=== PATIENT | male | born 1985 | race Caucasian/White ===

== ENCOUNTER 2020-08-27 16:49 | Observation (INO) | payer BC, OTHER, SELFPAY ==
[2020-08-27 16:55] VITALS: BP 139/81; PULSE 83; RESP 17; TEMP 36.5; O2SAT 99; BMI 27.2
--- NOTE | 2020-08-27 17:46 | CTR_ITS ---
PROCEDURE INFORMATION: Exam: CT Abdomen And Pelvis With Contrast Exam date and time: 08/27/2020 5:59 PM Age: 35 years old Clinical indication: Abdominal pain; Localized; Right upper quadrant (ruq); Additional info: Abd pain TECHNIQUE: Imaging protocol: Computed tomography of the abdomen and pelvis with intravenous contrast. Radiation optimization: All CT scans at this facility use at least one of these dose optimization techniques: automated exposure control; mA and/or kV adjustment per patient size (includes targeted exams where dose is matched to clinical indication); or iterative reconstruction. Contrast material: OMNI 300; Contrast volume: 95 ml; Contrast route: INTRAVENOUS (IV); COMPARISON: CT abdomen pelvis w con* [id number] 09/07/2015 11:36 AM RADIATION DOSE METRICS: Total DLP (mGy-cm): 887.29 FINDINGS: Liver: There is a 4 mm hypodensity in the left lobe of the liver image 17 that is too small to characterize but unchanged. There is a 1 cm peripherally enhancing abnormality in the right lobe of the liver image 16 that previously measured 6 mm. This is a probable hemangioma that is just beginning to opacify. Gallbladder and bile ducts: The gallbladder is collapsed. There is no evidence of cholelithiasis. There is no wall thickening or pericholecystic fluid to suggest cholecystitis. There is no common bile duct dilation. Pancreas: Normal. No ductal dilation. Spleen: Normal. No splenomegaly. Adrenal glands: Normal. No mass. Kidneys and ureters: There is no evidence of hydronephrosis. There is no evidence of renal calcifications. Stomach and bowel: The wall of the distal colon is thickened but collapsed. This appearance may reflect lack of distention however mild colitis cannot be excluded. There is no evidence of intestinal perforation or obstruction. Appendix: A normal appendix is identified. Intraperitoneal space: Unremarkable. No free air. No significant fluid collection. Vasculature: Unremarkable.No abdominal aortic aneurysm. Lymph nodes: Subcentimeter lymph nodes are noted in the adia hepatis and along the gastrohepatic ligament. There is no pathologic adenopathy. Urinary bladder: There is nonspecific bladder wall thickening. This may be related to incomplete distention. Reproductive: Unremarkable as visualized. Bones/joints: Unremarkable. No acute fracture. Soft tissues: Unremarkable. CT/CT abdomen pelvis w con* [id number] IMPRESSION: 1. The wall of the distal colon is thickened but collapsed. This appearance may reflect lack of distention however mild colitis cannot be excluded. The remaining loops of bowel have an appropriate appearance. 2. No hydronephrosis. No findings of cholecystitis. 3. Probable liver hemangiomas are noted. Radiation Dose CTDIVOL = (mGy): DLP = 887.29 (mGy-cm)
--- NOTE | 2020-08-27 17:59 | W.ED.ABDPA2 ---
Documented by User: Fermin Little DO 08/28/20 06:47 HPI - Abdominal Pain General: Chief Complaint: Abdominal Pain Stated Complaint: abd pain Time Seen by Provider: 08/27/20 17:33 History of Present Illness: HPI narrative: 35-year-old male presents emergency room complaining of 3 days of abdominal pain epigastric radiating to the right and left upper quadrants. Worse with p.o. intake he is tried several [id number] medications with no relief he denies any hematemesis or coffee-ground emesis. He does not drink heavily just not drink significant amount of coffee or alcohol. Denies fever sweats or chills or shortness of breath. MD elicited complaint: abdominal pain Onset (ago): day(s) (3) Pain Consistency: constant Location: Epigastric Severity: moderate Quality: cramping Radiation: LUQ and RUQ Exacerbating factors: eating Relieving factors: nothing Associated Symptoms: Reports anorexia, bloating and GI cramping; Denies change in bowel habits, change in stool character, chills, coffee ground emesis, constipation, diarrhea, dyspepsia, dysuria, excessive flatus, fever(s), heartburn, hematochezia, hematuria, hematemesis, fecal incontinence, loose stools, melena, nausea, poor appetite, syncope and vomiting Review of Systems Const: Denies: fever(s) or chills ENMT: Denies: throat pain, ear or mastoid pain, nasal discharge or nasal congestion Card: Denies: syncope Resp: Denies: dyspnea, productive cough or non-productive cough GI: Reports: bloating and GI cramping; Denies: nausea, vomiting, hematemesis, coffee ground emesis, heartburn, diarrhea, constipation, excessive flatus, fecal incontinence, change in bowel habits, change in stool character, hematochezia or melena : Denies: hematuria Skin/Breast: Denies: rash or pruritus PFSH ED PFSH: Social History Smoking and tobacco status: current every day smoker Alcohol intake: current Physical Exam Const: COMMON NORMALS: no acute distress GENERAL APPEARANCE: cooperative and comfortable ORIENTATION/CONSCIOUSNESS: Yes awake, Yes oriented to person, Yes oriented to place and Yes oriented to time HENMT: COMMON NORMALS: normocephalic, atraumatic and hearing grossly normal bilaterally HEAD & SCALP: normocephalic and atraumatic Neck/C-Spine: COMMON NORMALS: no JVD Resp: COMMON NORMALS: normal respiratory effort, No retractions, No use of accessory muscles and clear to auscultation bilaterally AUSCULTATION: clear to auscultation bilaterally Cardio: COMMON NORMALS: no JVD, regular rate, regular rhythm and No murmurs present (Cardio) RATE: regular rate RHYTHM: regular rhythm GI: COMMON NORMALS: Soft to palpation and No hepatosplenomegaly present AUSCULTATION: Yes normoactive bowel sounds PALPATION: Yes Soft to palpation, Yes Tenderness to palpation present (GI) (Diffuse epigastric), No Guarding due to palpation present (GI) and Yes No hepatosplenomegaly present Extremity: COMMON NORMALS: normal to inspection, capillary refill normal, no clubbing, cyanosis or edema, no calf tenderness and no pedal edema Neuro: SENSORIUM/ORIENTATION: Yes oriented to person, Yes oriented to place and Yes oriented to time Skin: COMMON NORMALS: no rashes or lesions noted GENERAL SKIN EXAM: no rashes or lesions noted Course Vital Signs: Vital signs: Vital Signs Temperature 97.8 F 08/28/20 04:00 Pulse Rate 67 08/28/20 04:00 Respiratory Rate 18 08/28/20 04:00 Blood Pressure 100/64 08/28/20 04:00 Pulse Oximetry 100 08/28/20 04:00 MDM - Abdominal Pain MDM Narrative: Medical decision making narrative: Care turned over to Dr. Rose at change of shift. See his notes for final diagnosis and disposition. Lab Data: Labs: Lab Results 08/27/20 08/27/20 08/27/20 Range/Units 17:51 17:51 17:51 WBC 7.2 (4.0-10.0) 10^3/ uL RBC 5.34 H (4.1-5.3) 10^6/u L Hgb 16.5 (11.7-16.6) g/dL Hct 49.5 (42.0-52.0) % MCV 92.7 (80-94) fL MCH 30.9 (28.0-34.0) pg MCHC 33.3 (30.0-36.0) g/dL RDW 11.4 L (12.1-15.1) % Plt Count 295 (130-400) 10^3/c mm MPV 9.4 (7.4-10.4) fL Neut % (Auto) 46.1 % Lymph % (Auto) 38.9 % Lawrence % (Auto) 7.3 % Eos % (Auto) 6.7 % Baso % (Auto) 0.7 % Neut # (Auto) 3.31 (1.8-7.7) 10^3/u L Lymph # (Auto) 2.8 (0.8-4.8) 10^3/u L Lawrence # (Auto) 0.5 (0.2-0.9) 10^3/u L Eos # (Auto) 0.5 (0.0-0.8) 10^3/u L Baso # (Auto) 0.1 (0.0-0.1) 10^3/u L Nucleated RBC % (a uto) 0 % Nucleated RBCs # 0.0 /100WBC Sodium 139 (136-145) mmol/L Potassium 4.1 (3.5-5.1) mmol/L Chloride 103 (98-107) mmol/L Carbon Dioxide 28 (22-29) mmol/L Anion Gap 12.1 (5-19) BUN 11 (6-20) mg/dL Creatinine 0.8 (0.7-1.2) mg/dL GFR Calculation 109.4 (90-130) mL/min Glucose 100 (65-115) mg/dL Calculated Osmolal ity 287 (285-295) mOsm/k g Calcium 9.4 (8.5-10.5) mg/dL Total Bilirubin 0.8 (0.15-1.2) mg/dL AST 26 (0-40) U/L ALT 50 H (0-41) U/L Alkaline Phosphata se 88 (40-130) IU/L Total Protein 6.9 (6.6-8.7) g/dL Albumin 4.5 (3.5-5.2) g/dL Globulin 2.4 (1.3-4.6) g/dL Lipase 39 (13-60) U/L Urine Color Yellow (Yellow) Urine Appearance Clear (CLEAR) Urine pH 6.5 (5-7) Ur Specific Gravit y 1.015 (1.005-1.030) Urine Protein Neg (Negative) Urine Glucose (UA) Norm (Normal) Urine Ketones Negative (Negative) Urine Blood Neg (Negative) Urine Nitrate Negative (Negative) Urine Bilirubin Neg (Negative) Urine Urobilinogen 1 H (Negative) mg/dL Ur Leukocyte Lydia ase Negative (Negative) H. pylori IgG Anti body (Negative) 08/27/20 Range/Units 17:51 WBC (4.0-10.0) 10^3/ uL RBC (4.1-5.3) 10^6/u L Hgb (11.7-16.6) g/dL Hct (42.0-52.0) % MCV (80-94) fL MCH (28.0-34.0) pg MCHC (30.0-36.0) g/dL RDW (12.1-15.1) % Plt Count (130-400) 10^3/c mm MPV (7.4-10.4) fL Neut % (Auto) % Lymph % (Auto) % Lawrence % (Auto) % Eos % (Auto) % Baso % (Auto) % Neut # (Auto) (1.8-7.7) 10^3/u L Lymph # (Auto) (0.8-4.8) 10^3/u L Lawrence # (Auto) (0.2-0.9) 10^3/u L Eos # (Auto) (0.0-0.8) 10^3/u L Baso # (Auto) (0.0-0.1) 10^3/u L Nucleated RBC % (a uto) % Nucleated RBCs # /100WBC Sodium (136-145) mmol/L Potassium (3.5-5.1) mmol/L Chloride (98-107) mmol/L Carbon Dioxide (22-29) mmol/L Anion Gap (5-19) BUN (6-20) mg/dL Creatinine (0.7-1.2) mg/dL GFR Calculation (90-130) mL/min Glucose (65-115) mg/dL Calculated Osmolal ity (285-295) mOsm/k g Calcium (8.5-10.5) mg/dL Total Bilirubin (0.15-1.2) mg/dL AST (0-40) U/L ALT (0-41) U/L Alkaline Phosphata se (40-130) IU/L Total Protein (6.6-8.7) g/dL Albumin (3.5-5.2) g/dL Globulin (1.3-4.6) g/dL Lipase (13-60) U/L Urine Color (Yellow) Urine Appearance (CLEAR) Urine pH (5-7) Ur Specific Gravit y (1.005-1.030) Urine Protein (Negative) Urine Glucose (UA) (Normal) Urine Ketones (Negative) Urine Blood (Negative) Urine Nitrate (Negative) Urine Bilirubin (Negative) Urine Urobilinogen (Negative) mg/dL Ur Leukocyte Lydia ase (Negative) H. pylori IgG Anti body Negative (Negative) Discharge Plan Discharge Admit Provider: Gorge Sandhu Sign Out Sign Out Data: Patient Sign Out occurred on 08/27/20 at 18:13. Patient's care was discussed, and care was transferred from to Kajal Delong. Coding Level of Care Code ED Front Desk Administrator for Chg Fwd Exam Comprehensive Documented by User: Kajal Delong 08/28/20 02:12 HPI - Abdominal Pain General: Chief Complaint: Abdominal Pain Stated Complaint: abd pain Time Seen by Provider: 08/27/20 17:33 [facility] ED PFSH: Social History Smoking and tobacco status: current every day smoker Alcohol intake: current Course Vital Signs: Vital signs: Vital Signs Temperature 97.8 F 08/28/20 04:00 Pulse Rate 67 08/28/20 04:00 Respiratory Rate 18 08/28/20 04:00 Blood Pressure 100/64 08/28/20 04:00 Pulse Oximetry 100 08/28/20 04:00 MDM - Abdominal Pain MDM Narrative: Medical decision making narrative: 1853 -Case inherited by me at change of shift from Dr. Little. Please see his note for his history, physical exam and medical decision-making notes. Patient explains to me has had abdominal pain primarily in the left upper quadrant but now some in the right upper quadrant as well for the past 3 days. He describes the pain as a dull ache with occasional sharp pains. He has no radiation of the pain. He has no associated vomiting, no diarrhea or constipation, no testicular pain or urinary symptoms such as dysuria, urgency or frequency. Patient has any fevers or chills. Patient currently states his pain is mild to moderate. On exam he has tenderness in both the right upper quadrant and left upper quadrant that is mild. There is no rebound or guarding. CT scan has been performed but has not been interpreted and his CBC to this point is normal. I will reevaluate after the patient's CT scan and labs have returned. 1804 -patient is nauseated and still has pain. CT scan was unremarkable but his ultrasound shows a thickened gallbladder wall at 0.81 cm. I reviewed all this with Dr. Desai he agrees to meet the patient on IV antibiotics and will perform a cholecystectomy tomorrow. Patient is in agreement with this plan. Differential Diagnosis: Differential diagnosis abdominal pain: Likely abdominal pain, acute appendicitis, calculus of kidney, constipation, diverticulitis, gastroenteritis, pancreatitis and small bowel obstruction Lab Data: Attestation: I reviewed the patient's lab results. Labs: Lab Results 08/27/20 08/27/20 08/27/20 Range/Units 17:51 17:51 17:51 WBC 7.2 (4.0-10.0) 10^3/ uL RBC 5.34 H (4.1-5.3) 10^6/u L Hgb 16.5 (11.7-16.6) g/dL Hct 49.5 (42.0-52.0) % MCV 92.7 (80-94) fL MCH 30.9 (28.0-34.0) pg MCHC 33.3 (30.0-36.0) g/dL RDW 11.4 L (12.1-15.1) % Plt Count 295 (130-400) 10^3/c mm MPV 9.4 (7.4-10.4) fL Neut % (Auto) 46.1 % Lymph % (Auto) 38.9 % Lawrence % (Auto) 7.3 % Eos % (Auto) 6.7 % Baso % (Auto) 0.7 % Neut # (Auto) 3.31 (1.8-7.7) 10^3/u L Lymph # (Auto) 2.8 (0.8-4.8) 10^3/u L Lawrence # (Auto) 0.5 (0.2-0.9) 10^3/u L Eos # (Auto) 0.5 (0.0-0.8) 10^3/u L Baso # (Auto) 0.1 (0.0-0.1) 10^3/u L Nucleated RBC % (a uto) 0 % Nucleated RBCs # 0.0 /100WBC Sodium 139 (136-145) mmol/L Potassium 4.1 (3.5-5.1) mmol/L Chloride 103 (98-107) mmol/L Carbon Dioxide 28 (22-29) mmol/L Anion Gap 12.1 (5-19) BUN 11 (6-20) mg/dL Creatinine 0.8 (0.7-1.2) mg/dL GFR Calculation 109.4 (90-130) mL/min Glucose 100 (65-115) mg/dL Calculated Osmolal ity 287 (285-295) mOsm/k g Calcium 9.4 (8.5-10.5) mg/dL Total Bilirubin 0.8 (0.15-1.2) mg/dL AST 26 (0-40) U/L ALT 50 H (0-41) U/L Alkaline Phosphata se 88 (40-130) IU/L Total Protein 6.9 (6.6-8.7) g/dL Albumin 4.5 (3.5-5.2) g/dL Globulin 2.4 (1.3-4.6) g/dL Lipase 39 (13-60) U/L Urine Color Yellow (Yellow) Urine Appearance Clear (CLEAR) Urine pH 6.5 (5-7) Ur Specific Gravit y 1.015 (1.005-1.030) Urine Protein Neg (Negative) Urine Glucose (UA) Norm (Normal) Urine Ketones Negative (Negative) Urine Blood Neg (Negative) Urine Nitrate Negative (Negative) Urine Bilirubin Neg (Negative) Urine Urobilinogen 1 H (Negative) mg/dL Ur Leukocyte Lydia ase Negative (Negative) H. pylori IgG Anti body (Negative) 08/27/20 Range/Units 17:51 WBC (4.0-10.0) 10^3/ uL RBC (4.1-5.3) 10^6/u L Hgb (11.7-16.6) g/dL Hct (42.0-52.0) % MCV (80-94) fL MCH (28.0-34.0) pg MCHC (30.0-36.0) g/dL RDW (12.1-15.1) % Plt Count (130-400) 10^3/c mm MPV (7.4-10.4) fL Neut % (Auto) % Lymph % (Auto) % Lawrence % (Auto) % Eos % (Auto) % Baso % (Auto) % Neut # (Auto) (1.8-7.7) 10^3/u L Lymph # (Auto) (0.8-4.8) 10^3/u L Lawrence # (Auto) (0.2-0.9) 10^3/u L Eos # (Auto) (0.0-0.8) 10^3/u L Baso # (Auto) (0.0-0.1) 10^3/u L Nucleated RBC % (a uto) % Nucleated RBCs # /100WBC Sodium (136-145) mmol/L Potassium (3.5-5.1) mmol/L Chloride (98-107) mmol/L Carbon Dioxide (22-29) mmol/L Anion Gap (5-19) BUN (6-20) mg/dL Creatinine (0.7-1.2) mg/dL GFR Calculation (90-130) mL/min Glucose (65-115) mg/dL Calculated Osmolal ity (285-295) mOsm/k g Calcium (8.5-10.5) mg/dL Total Bilirubin (0.15-1.2) mg/dL AST (0-40) U/L ALT (0-41) U/L Alkaline Phosphata se (40-130) IU/L Total Protein (6.6-8.7) g/dL Albumin (3.5-5.2) g/dL Globulin (1.3-4.6) g/dL Lipase (13-60) U/L Urine Color (Yellow) Urine Appearance (CLEAR) Urine pH (5-7) Ur Specific Gravit y (1.005-1.030) Urine Protein (Negative) Urine Glucose (UA) (Normal) Urine Ketones (Negative) Urine Blood (Negative) Urine Nitrate (Negative) Urine Bilirubin (Negative) Urine Urobilinogen (Negative) mg/dL Ur Leukocyte Lydia ase (Negative) H. pylori IgG Anti body Negative (Negative) Imaging Data ^: CT Abd/Pel: Radiologist's impression: [employer] [address] [address] [address] Scan Report Signed Patient: Mega Gonzales Unit #: [id number] : 1985 Age/Sex: 35 / M ADM Date: 08/27/20 Loc: ER Room/Bed: Attending Dr: Ordering Provider/Ordering MD: Fermin Little DO Date of Service: 08/27/20 Procedure(s): CT abdomen pelvis w con* [id number] Accession Number(s): [id number] Report Number: [id number] PROCEDURE INFORMATION: Exam: CT Abdomen And Pelvis With Contrast Exam date and time: 08/27/2020 5:59 PM Age: 35 years old Clinical indication: Abdominal pain; Localized; Right upper quadrant (ruq); Additional info: Abd pain TECHNIQUE: Imaging protocol: Computed tomography of the abdomen and pelvis with intravenous contrast. Radiation optimization: All CT scans at this facility use at least one of these dose optimization techniques: automated exposure control; mA and/or kV adjustment per patient size (includes targeted exams where dose is matched to clinical indication); or iterative reconstruction. Contrast material: OMNI 300; Contrast volume: 95 ml; Contrast route: INTRAVENOUS (IV); COMPARISON: CT abdomen pelvis w con* [id number] 09/07/2015 11:36 AM RADIATION DOSE METRICS: Total DLP (mGy-cm): 887.29 FINDINGS: Liver: There is a 4 mm hypodensity in the left lobe of the liver image 17 that is too small to characterize but unchanged. There is a 1 cm peripherally enhancing abnormality in the right lobe of the liver image 16 that previously measured 6 mm. This is a probable hemangioma that is just beginning to opacify. Gallbladder and bile ducts: The gallbladder is collapsed. There is no evidence of cholelithiasis. There is no wall thickening or pericholecystic fluid to suggest cholecystitis. There is no common bile duct dilation. Pancreas: Normal. No ductal dilation. Spleen: Normal. No splenomegaly. Adrenal glands: Normal. No mass. Kidneys and ureters: There is no evidence of hydronephrosis. There is no evidence of renal calcifications. Stomach and bowel: The wall of the distal colon is thickened but collapsed. This appearance may reflect lack of distention however mild colitis cannot be excluded. There is no evidence of intestinal perforation or obstruction. Appendix: A normal appendix is identified. Intraperitoneal space: Unremarkable. No free air. No significant fluid collection. Vasculature: Unremarkable.No abdominal aortic aneurysm. Lymph nodes: Subcentimeter lymph nodes are noted in the adia hepatis and along the gastrohepatic ligament. There is no pathologic adenopathy. Urinary bladder: There is nonspecific bladder wall thickening. This may be related to incomplete distention. Reproductive: Unremarkable as visualized. Bones/joints: Unremarkable. No acute fracture. Soft tissues: Unremarkable. CT/CT abdomen pelvis w con* [id number] IMPRESSION: 1. The wall of the distal colon is thickened but collapsed. This appearance may reflect lack of distention however mild colitis cannot be excluded. The remaining loops of bowel have an appropriate appearance. 2. No hydronephrosis. No findings of cholecystitis. 3. Probable liver hemangiomas are noted. Radiation Dose CTDIVOL = (mGy): DLP = 887.29 (mGy-cm) Dictated By: Marija Lacy Signed By: Marija Lacy Signed Date/Time: 08/27/201855 DD/ 54 Discharge Plan Discharge Admit Provider: Gorge Sandhu Sign Out Sign Out Data: Patient Sign Out occurred on 08/27/20 at 18:13. Patient's care was discussed, and care was transferred from to [facility]. Coding Level of Care Code ED Front Desk Administrator for Chg Fwd Exam Comprehensive
[2020-08-27 18:03] LABS: Add Urine Microscopic? NO
[2020-08-27 18:04] LABS: Basophils # 0.1 10^3/uL (0.0-0.1); Basophils % 0.7 %; Eosinophils # 0.5 10^3/uL (0.0-0.8); Eosinophils % 6.7 %; Hematocrit 49.5 % (42.0-52.0); Hemoglobin 16.5 g/dL (11.7-16.6); Lymphocytes # 2.8 10^3/uL (0.8-4.8); Lymphocytes % 38.9 %; Mean Corpuscular HGB Conc 33.3 g/dL (30.0-36.0); Mean Corpuscular Hemoglobin 30.9 pg (28.0-34.0); Mean Corpuscular Volume 92.7 fL (80-94); Mean Platelet Volume 9.4 fL (7.4-10.4); Monocytes # 0.5 10^3/uL (0.2-0.9); Monocytes % 7.3 %; Neutrophils # 3.31 10^3/uL (1.8-7.7); Neutrophils % 46.1 %; Nucleated Red Blood Cells % 0 %; Platelet Count 295 10^3/cmm (130-400); Red Blood Count 5.34 10^6/uL (4.1-5.3); Red Cell Distribution Width 11.4 % (12.1-15.1); White Blood Count 7.2 10^3/uL (4.0-10.0)
[2020-08-27] MEDS: ondansetron 2 mg/ML SDV 2 mL 4 MG IVP ×2 (18:12→19:24)
[2020-08-27] MEDS: lidocaine 2% viscous 15 ML, aluminum-mag hydrox-simethicon 30 ML, sucralfate oral liq 1 GM PO (18:12)
[2020-08-27] MEDS: sodium chloride 0.9% 1,000 ML 999 ML IV (18:12)
[2020-08-27 18:24] LABS: Bilirubin Urine Neg (Negative); Blood Urine Neg (Negative); Glucose Urine UA Norm (Normal); Ketones Urine Negative (Negative); Nitrate Urine Negative (Negative); Protein Urine Neg (Negative); Specific Gravity, Urine 1.015 (1.005-1.030); Urine Appearance Clear (CLEAR); Urine Color Yellow (Yellow); pH Urine 6.5 (5-7)
[2020-08-27 18:25] LABS: Leukocyte Esterase Urine Negative (Negative); Urobilinogen Urine 1 mg/dL (Negative)
[2020-08-27] MEDS: iohexol 300 mg/mL 100 mL Btl IV (18:36)
[2020-08-27 18:57] LABS: Alanine Aminotransferase 50 U/L (0-41); Albumin Level 4.5 g/dL (3.5-5.2); Alkaline Phosphatase 88 IU/L (40-130); Anion Gap 12.1 (5-19); Aspartate Amino Transferase 26 U/L (0-40); Blood Urea Nitrogen 11 mg/dL (6-20); Calcium 9.4 mg/dL (8.5-10.5); Carbon Dioxide 28 mmol/L (22-29); Chloride 103 mmol/L (98-107); Globulin 2.4 g/dL (1.3-4.6); Glomerular Filtration Rate 109.4 mL/min (90-130); Glucose 100 mg/dL (65-115); Lipase 39 U/L (13-60); Osmolality Calculated 287 mOsm/kg (285-295); Potassium 4.1 mmol/L (3.5-5.1); Sodium 139 mmol/L (136-145); Total Bilirubin 0.8 mg/dL (0.15-1.2); Total Protein 6.9 g/dL (6.6-8.7)
--- NOTE | 2020-08-27 19:06 | US_ITS ---
WS: [id number] ULTRASOUND ABDOMEN LIMITED CLINICAL INFORMATION: Pain COMPARISON: None. FINDINGS: Liver Size: Normal. Craniocaudal length: 16.0 cm. Echogenicity: Diffuse fatty infiltration. Surface nodularity: None. Mass (size and location): None. Bile ducts Intrahepatic ducts: Normal. Common bile duct diameter: 4.7mm Gallbladder Contracted Gallstones: None. Gallbladder sludge: None. Gallbladder wall thickenin.2 mm Pericholecystic fluid: None. Sonographic Hinojosa sign: Absent. Pancreas Normal as visualized. Right kidney: Normal. Hydronephrosis: None. Size: 10.6 cm x 4.9 cm x 3.9 cm. Abdominal aorta and IVC Visualized portions are normal. Ascites: None. US/US gall bladder [id number] IMPRESSION: 1. Liver size is upper limits of normal with mild diffuse fatty infiltration. No intrahepatic biliary ductal dilatation. 2. Gallbladder is contracted. Gallbladder is otherwise normal in appearance. N ormal common bile duct. 3. No hydronephrosis in the right kidney.
[2020-08-27] MEDS: morphine 4 mg/mL SDV 1 mL IVP (19:24)
[2020-08-27 19:27] VITALS: PULSE 74; RESP 16; O2SAT 99
[2020-08-27 19:40] LABS: H. Pylori IgG Antibody Negative (Negative)
[2020-08-27] MEDS: metroNIDAZOLE IV 500 MG/100 ML PREMIX 100 MG IV (19:53)
[2020-08-27] MEDS: nicotine 21 mg Patch 1 PATCH TRANSDERMA (20:37)
[2020-08-27] MEDS: LORazepam 1 mg Tablet PO (20:37)
[2020-08-27 20:51] VITALS: BP 134/78; PULSE 83; RESP 18; O2SAT 97
[2020-08-27 20:52] VITALS: BP 132/78; PULSE 78; RESP 16; O2SAT 98
[2020-08-27] MEDS: ciprofloxacin 400 MG/200 ML PREMIX 200 MG IV (21:01)
[2020-08-27 21:09] VITALS: BP 125/80; PULSE 65; RESP 18; TEMP 36.6; O2SAT 97
--- NOTE | 2020-08-27 21:13 | PC.NURSE ---
Pt arrived to floor and ambulated from gurney in the hcu to bed. Pt is A&O. Breathing is even and unlabored.
[2020-08-27] MEDS: dextrose 5%-sod chloride 0.45% 1,000 ML 100 ML IV (22:12)
[2020-08-27 23:48] VITALS: BP 119/60; PULSE 62; RESP 18; TEMP 36.8; O2SAT 96
[2020-08-28] VITALS (9 sets, daily range): BP systolic 100–122; BP diastolic 64–78; PULSE 64–79; RESP 14–20; TEMP 36.4–36.7; O2SAT 95–100
[2020-08-28] MEDS: morphine 4 mg/mL SDV 1 mL IVP ×4 (01:10→22:53)
[2020-08-28] MEDS: ondansetron 2 mg/ML SDV 2 mL 4 MG IVP ×3 (01:10→22:53)
[2020-08-28] MEDS: metroNIDAZOLE IV 500 MG/100 ML PREMIX 100 MG IV ×3 (03:44→21:01)
[2020-08-28 05:33] LABS: Basophils # 0.1 10^3/uL (0.0-0.1); Basophils % 0.7 %; Eosinophils # 0.6 10^3/uL (0.0-0.8); Eosinophils % 9.1 %; Hematocrit 47.8 % (42.0-52.0); Hemoglobin 15.5 g/dL (11.7-16.6); Lymphocytes # 3.4 10^3/uL (0.8-4.8); Lymphocytes % 50.1 %; Mean Corpuscular HGB Conc 32.4 g/dL (30.0-36.0); Mean Corpuscular Hemoglobin 31.2 pg (28.0-34.0); Mean Corpuscular Volume 96.2 fL (80-94); Mean Platelet Volume 9.8 fL (7.4-10.4); Monocytes # 0.5 10^3/uL (0.2-0.9); Monocytes % 7.9 %; Neutrophils # 2.15 10^3/uL (1.8-7.7); Neutrophils % 32.1 %; Nucleated Red Blood Cells % 0 %; Platelet Count 245 10^3/cmm (130-400); Red Blood Count 4.97 10^6/uL (4.1-5.3); Red Cell Distribution Width 11.6 % (12.1-15.1); White Blood Count 6.7 10^3/uL (4.0-10.0)
[2020-08-28 06:04] LABS: Alanine Aminotransferase 39 U/L (0-41); Albumin Level 3.7 g/dL (3.5-5.2); Alkaline Phosphatase 70 IU/L (40-130); Anion Gap 12.2 (5-19); Aspartate Amino Transferase 19 U/L (0-40); Blood Urea Nitrogen 9 mg/dL (6-20); Calcium 8.7 mg/dL (8.5-10.5); Carbon Dioxide 31 mmol/L (22-29); Chloride 104 mmol/L (98-107); Globulin 2.4 g/dL (1.3-4.6); Glomerular Filtration Rate 95.5 mL/min (90-130); Glucose 80 mg/dL (65-115); Osmolality Calculated 294 mOsm/kg (285-295); Potassium 4.2 mmol/L (3.5-5.1); Sodium 143 mmol/L (136-145); Total Bilirubin 0.9 mg/dL (0.15-1.2); Total Protein 6.1 g/dL (6.6-8.7)
--- NOTE | 2020-08-28 08:07 | PM.HP ---
Providers/Chief Complaint Admitting Physician: General Surgery Dutch Desai MD Primary Care Provider: Paresh Quiles DO Chief Complaint: abd pain History of Present Illness Mega Gonzales is a 35 year old male who says he developed some upper abdominal pain 3 to 4 days ago. He describes this as being on either side of the abdomen at the rib cage margins and it seems to radiate towards the epigastrium. He also has had sharp pains that would occur throughout the remainder of his abdomen. He denies any nausea or vomiting. He has not had any fevers. He denies any changes in bowel habits. He has noticed perhaps more discomfort in the right upper quadrant as opposed to the left as the pain continued. He says the pain got bad enough that he came to the emergency room yesterday and an ultrasound revealed a gallbladder with a thickened gallbladder wall. A CAT scan did not reveal any obvious acute findings. All of his liver function studies were within normal limits, as was his white blood cell count. The patient was brought in under observation for presumed acute cholecystitis. He says he feels somewhat better this morning but has been getting some pain medication. The patient denies any history of food intolerances prior to this past week with the exception of dairy products which have always made him gassy. In short, he does not appear to have an ongoing history of biliary colic. 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 By the time he got to [facility] for further evaluation he was feeling better and his spleen was starting to improve. Nothing specific was done at that time and he has not had any similar problems since until now. Review of Systems General: Reports: 10 or more systems reviewed and unremarkable except in HPI and below Const: Denies: fever(s) Resp: Denies: dyspnea GI: Reports: abdominal pain, bloating and belching; Denies: vomiting Psych: Reports: anxiety and depression Medications/Allergies Home Medications Medication Instructions Recorded Confirmed Last Taken Type venlafaxine 150 mg PO DAILY 08/27/20 08/27/20 Unknown History Allergies Allergy/AdvReac Type Severity Reaction Status Date / Time Penicillins Allergy rash Verified 08/28/20 08:14 PFSH Acute PFSH: Medical History (Updated 08/28/20 @ 09:03 by Dutch Desai MD) Anxiety Depression Gilbert's disease IBS (irritable bowel syndrome) PTSD (post-traumatic stress disorder) Von Willebrand disease Surgical History (Updated 08/28/20 @ 08:06 by Dutch Desai MD) H/O vasectomy Social History (Updated 08/28/20 @ 08:07 by Dutch Desai MD) Smoking and tobacco status: current every day smoker cigarettes Packs smoked per day: 0.75 Years cigarettes smoked: 20 Alcohol intake: current Alcohol intake frequency: 3 or more drinks per day Alcohol type: beer Alcohol use comment: Averages 6 beers a day Vitals/I&O/Wt Last Vital Signs Temp 97.5 F L 08/28/20 07:56 Pulse 72 08/28/20 07:56 Resp 20 H 08/28/20 07:56 BP 112/74 08/28/20 07:56 Pulse Ox 98 08/28/20 07:56 08/27/20 08/28/20 08/28/20 22:59 06:59 14:59 Intake Total 200 / 200 1300 / 1300 Balance 200 / 200 1300 / 1300 Weight last 48 hrs Weight 212 lb Physical Exam Narrative: EXAM NARRATIVE: The patient was encountered in his hospital room. He does not appear to be in any distress. The pupils are equal. No carotid bruits are heard. The lungs are clear anteriorly. The heart is regular. The abdomen is mildly obese but is soft and has good bowel sounds. He does have some mild tenderness the upper abdomen with perhaps more consistent tenderness being present in the right upper quadrant. Hinojosa's sign is negative. No obvious masses are palpated. The extremities reveal no edema. Neurologically the patient is grossly intact. Data : 08/28/20 04:31 08/28/20 04:31 Other Labs: Laboratory Tests 08/27/20 08/28/20 17:51 04:31 Total Bilirubin 0.9 AST 19 ALT 39 Alkaline Phosphatase 70 Lipase 39 Laboratory Tests 08/27/20 17:51 H. pylori IgG Antibody Negative CT Abd/Pel: Radiologist's impression: CT abdomen/pelvis 08/27/2020 IMPRESSION: 1. The wall of the distal colon is thickened but collapsed. This appearance may reflect lack of distention however mild colitis cannot be excluded. The remaining loops of bowel have an appropriate appearance. 2. No hydronephrosis. No findings of cholecystitis. 3. Probable liver hemangiomas are noted. US: Radiologist's impression: Gallbladder ultrasound 08/27/2020 IMPRESSION: 1. Liver size is upper limits of normal with mild diffuse fatty infiltration. No intrahepatic biliary ductal dilatation. 2. Gallbladder is contracted. Gallbladder is otherwise normal in appearance. Normal common bile duct. 3. No hydronephrosis in the right kidney. A&P Assessment and plan (1) Upper abdominal pain: After the patient was brought into the hospital from the emergency room last night, I was prepared to tell him he had acute cholecystitis and that we needed to proceed with a cholecystectomy. His history is certainly not consistent with any ongoing biliary colic, but I figured he may have had a stone lodged in the neck of his gallbladder. His gallbladder is actually very contracted and without any evidence of cholelithiasis. The gallbladder wall contraction could certainly be a reason why his gallbladder wall appears thickened. While it is still possible he could have chronic cholecystitis, I am starting to think that he may not have acute cholecystitis and he may have some other source to his pain. We have discussed this issue in detail and I told him that I do think it would be dangerous to keep an eye on him for a while in an attempt to avoid surgery; I certainly do not want to take out a gallbladder that is not causing problems. He understands and is agreeable with that plan. Status: Acute (2) Von Willebrand disease: I have checked with the blood bank and we do have cryoprecipitate available if needed. I am going to plan to give the patient a dose of DDAVP 30 minutes prior to surgery if we end up going to the operating room at some point. Status: Acute Attestations Medical Necessity Statement*: Based on my medical assessment, presenting symptoms and consideration of the scope of surgical therapy, I expect this patient will require treatment in the hospital for a period of time spanning less than 2 midnights, and is therefore being placed in observation status. Coding Level of Care Code Acute Laboratory Helper for [facility] Fwd Diagnoses Upper abdominal pain R10.10 Von Willebrand disease D68.0
[2020-08-28] MEDS: dextrose 5%-sod chloride 0.45% 1,000 ML 100 ML IV ×2 (08:10→16:53)
[2020-08-28] MEDS: ciprofloxacin 400 MG/200 ML PREMIX 200 MG IV ×2 (08:10→21:02)
[2020-08-28] MEDS: lidocaine 2% viscous 15 ML, aluminum-mag hydrox-simethicon 30 ML, sucralfate oral liq 1 GM PO (10:18)
[2020-08-28] MEDS: pantoprazole 40 mg SDV IVP ×2 (10:19→20:52)
--- NOTE | 2020-08-28 11:33 | P.PN_ITS ---
Subjective Subjective: Interval history: After holding on surgery, I had the patient drink a GI cocktail just to see if would make any difference in how he was feeling. He says it really did not change much. He still has some discomfort but is reasonably comfortable. Vitals/I&O/Wt Last Vital Signs Temp 97.5 F L 08/28/20 11:10 Pulse 65 08/28/20 11:10 Resp 18 08/28/20 11:10 BP 114/74 08/28/20 11:10 Pulse Ox 97 08/28/20 11:10 08/27/20 08/28/20 08/28/20 22:59 06:59 14:59 Intake Total 200 / 200 2496.667 / 2496.667 Balance 200 / 200 2496.667 / 2496.667 Weight last 48 hrs Weight 212 lb Physical Exam Narrative: EXAM NARRATIVE: Exam remains about the same with some upper abdominal tenderness, seemingly most consistent in the right upper quadrant. Data : 08/28/20 04:31 08/28/20 04:31 A&P Assessment and plan (1) Upper abdominal pain: I discussed the situation with the patient. In reviewing his previous imaging, he had a contracted gallbladder on the CAT scan back in 2012. He had a relatively normal appearance to his gallbladder on CAT scans in 2011 and 2014. In short, I told him that with a 3-day history of pain and imaging and laboratory studies that do not point me in a particular direction, it is difficult for me to recommend he have a cholecystectomy at this time. I suggested that we could keep an eye on him overnight and reevaluate him in the morning with labs, exam, etc. He is in agreement with that plan. Status: Acute (2) Von Willebrand disease: I have checked with the blood bank and we do have cryoprecipitate available if needed. I am going to plan to give the patient a dose of DDAVP 30 minutes prior to surgery if we end up going to the operating room at some point. Status: Acute Attestations Medical Necessity Statement*: The patient will remain in observation status. There is a chance she may be discharged in the morning. If not, I will convert him to inpatient status. Coding Level of Care Code Acute Supervisor Spinning for [facility] Sal Diagnoses Upper abdominal pain R10.10 Von Willebrand disease D68.0
[2020-08-28] MEDS: nicotine 14 mg Patch 1 PATCH TRANSDERMA (17:39)
[2020-08-29] VITALS: BP 115/76; PULSE 69; RESP 18; TEMP 36.5; O2SAT 96
[2020-08-29 02:47] LABS: Basophils # 0.1 10^3/uL (0.0-0.1); Basophils % 1.1 %; Eosinophils # 0.7 10^3/uL (0.0-0.8); Eosinophils % 13.1 %; Hematocrit 45.1 % (42.0-52.0); Hemoglobin 15.2 g/dL (11.7-16.6); Lymphocytes # 2.6 10^3/uL (0.8-4.8); Lymphocytes % 45.2 %; Mean Corpuscular HGB Conc 33.7 g/dL (30.0-36.0); Mean Corpuscular Hemoglobin 31.1 pg (28.0-34.0); Mean Corpuscular Volume 92.4 fL (80-94); Mean Platelet Volume 9.7 fL (7.4-10.4); Monocytes # 0.4 10^3/uL (0.2-0.9); Monocytes % 7.1 %; Neutrophils % 33.5 %; Nucleated Red Blood Cells % 0 %; Platelet Count 243 10^3/cmm (130-400); Red Blood Count 4.88 10^6/uL (4.1-5.3); Red Cell Distribution Width 11.3 % (12.1-15.1); White Blood Count 5.7 10^3/uL (4.0-10.0)
[2020-08-29 03:13] LABS: Alanine Aminotransferase 36 U/L (0-41); Albumin Level 3.7 g/dL (3.5-5.2); Alkaline Phosphatase 76 IU/L (40-130); Aspartate Amino Transferase 18 U/L (0-40); Globulin 1.9 g/dL (1.3-4.6); Lipase 33 U/L (13-60); Total Bilirubin 0.5 mg/dL (0.15-1.2); Total Protein 5.6 g/dL (6.6-8.7)
[2020-08-29 03:14] LABS: Anion Gap 14.2 (5-19); Blood Urea Nitrogen 9 mg/dL (6-20); Carbon Dioxide 26 mmol/L (22-29); Chloride 103 mmol/L (98-107); Glomerular Filtration Rate 109.4 mL/min (90-130); Glucose 123 mg/dL (65-115); Osmolality Calculated 288 mOsm/kg (285-295); Potassium 4.2 mmol/L (3.5-5.1); Sodium 139 mmol/L (136-145)
[2020-08-29 04:00] VITALS: BP 122/67; PULSE 70; RESP 19; TEMP 36.8; O2SAT 95
[2020-08-29] MEDS: metroNIDAZOLE IV 500 MG/100 ML PREMIX 100 MG IV ×2 (05:32→12:01)
[2020-08-29] MEDS: dextrose 5%-sod chloride 0.45% 1,000 ML 100 ML IV (05:33)
[2020-08-29] MEDS: ondansetron 2 mg/ML SDV 2 mL 4 MG IVP (06:40)
[2020-08-29 06:41] VITALS: RESP 18
[2020-08-29] MEDS: morphine 4 mg/mL SDV 1 mL IVP (06:41)
[2020-08-29 07:27] VITALS: BP 110/73; PULSE 72; RESP 16; TEMP 36.7; O2SAT 95
[2020-08-29] MEDS: pantoprazole 40 mg SDV IVP (08:31)
[2020-08-29] MEDS: nicotine 14 mg Patch 1 PATCH TRANSDERMA (09:15)
[2020-08-29] MEDS: ciprofloxacin 400 MG/200 ML PREMIX 200 MG IV (09:16)
--- NOTE | 2020-08-29 09:56 | PC.RESP ---
SMOKING CESSATION INFORMATION SENT TO PATIENT.
[2020-08-29 11:26] VITALS: BP 104/75; PULSE 67; RESP 18; TEMP 36.6; O2SAT 67
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
[2020-08-29 15:18] VITALS: BP 104/75; PULSE 67; RESP 18; TEMP 36.6; O2SAT 67
--- NOTE | 2020-08-29 15:30 | PC.NURSE ---
DC instructions given to patient, voiced full understanding. IV DC'd cath intact bleeding controlled with 2x2 and coban. PT to main entrance via wheelchair to private vehicle with zero difficulty
== END 2020-08-29 15:30 | disposition home or self-care (01) ==
LOC: ER 18:13 → MEDSURG 20:39
PROVIDERS: Emergency Medicine; Family Medicine; Surgery; Admitting Provider Internal Medicine; Emergency Provider Emergency Medicine; PCP Electrodiagnostic Medicine; Visit Provider Internal Medicine
DX: R10.10 Upper abdominal pain, unspecified (principal); D68.0 Von Willebrand disease; F17.210 Nicotine dependence, cigarettes, uncomplicated
CPT/HCPCS: 12345; 36415; 74177; 76705; 80048; 80053; 80076; 81003; 83690; 85025; 86677; 96361; 96365; 96375; 99283; C9113; G0378; J0131; J0744; J2270; J2405; J7030; J7799; Q9967; S0030

== ENCOUNTER → 2020-11-07 12:41 | Outpatient (BNVA) | payer BC, OTHER, SELFPAY | PROVIDERS: PCP Electrodiagnostic Medicine; Visit Provider Nurse Practitioner | DX: J02.0 Streptococcal pharyngitis (principal) | CPT/HCPCS: 87880 ==

== ENCOUNTER → 2021-10-08 11:30 | Outpatient (BNVA) | payer BC, OTHER, SELFPAY | PROVIDERS: PCP Electrodiagnostic Medicine; Visit Provider Family Medicine | DX: M54.16 Radiculopathy, lumbar region (principal); D68.0 Von Willebrand disease; Z82.69 Family history of other diseases of the musculoskeletal system and connective tissue | CPT/HCPCS: 80053; 80061; 84443; 85025; 85651; 86140 ==

== ENCOUNTER 2021-10-23 13:59 | Outpatient (CLI) | payer BC, OTHER, SELFPAY ==
--- NOTE | 2021-10-23 14:07 | XRR_ITS ---
PROCEDURE INFORMATION: Exam: XR Lumbosacral Spine Exam date and time: 10/23/2021 2:07 PM Age: 36 years old Clinical indication: Low back pain; Additional info: Chronic lumbar back pain with R side radiculopathy TECHNIQUE: Imaging protocol: XR of the lumbosacral spine. Views: 2 or 3 views. COMPARISON: CT abdomen pelvis w con* [id number] 08/27/2020 6:26 PM FINDINGS: Bones/joints: Mild straightening of the normal lumbar lordosis. No radiographic evidence of acute fracture, dislocation or subluxation. Alignment anatomic. Mild multilevel spondylosis. Soft tissues: Grossly unremarkable. XR/XR lumbar spine 2-3V* [id number] IMPRESSION: No acute radiographic findings.
== END 2021-10-23 14:00 | disposition home or self-care (01) ==
LOC: RAD 14:04
PROVIDERS: PCP Family Medicine; Visit Provider Family Medicine
DX: M54.16 Radiculopathy, lumbar region (principal)
CPT/HCPCS: 72100

== ENCOUNTER 2021-12-18 06:00 | Outpatient (RCR) | payer BC, OTHER, SELFPAY | END 2021-12-25 23:59 | disposition home or self-care (01) | LOC: SPT 06:00 | PROVIDERS: PCP Family Medicine; Referring Provider Family Medicine; Visit Provider Family Medicine | DX: M54.16 Radiculopathy, lumbar region (principal) | CPT/HCPCS: 97161 ==

== ENCOUNTER 2022-04-20 10:12 | Outpatient (CLI) | payer BC, OTHER, SELFPAY ==
--- NOTE | 2022-04-20 12:18 | XR_ITS ---
WS: [id number] Exam: XR hip RT 2-3V wo/w pel* [id number] Date/Time of Exam: 04/20/2022 12:20 PM Reason For Exam: R hip pain No fracture or dislocation. The joint compartment relatively well maintained. Periarticular calcifica tion seen along the lateral joint space. XR/XR hip RT 2-3V wo/w pel* [id number] IMPRESSION: 1. Minimal degenerative changes and periarticular calcification. No fracture or dislocation.
== END 2022-04-20 10:13 | disposition home or self-care (01) ==
LOC: RAD 10:15
PROVIDERS: PCP Family Medicine; Visit Provider Family Medicine
DX: M25.551 Pain in right hip (principal)
CPT/HCPCS: 73502

== ENCOUNTER 2023-10-25 09:12 | Emergency (ER) | payer OTHER, SELFPAY ==
[2023-10-25 10:26] VITALS: BP 143/90; PULSE 82; RESP 16; TEMP 36.9; O2SAT 99; BMI 24.6
--- NOTE | 2023-10-25 10:36 | W.ED.COVID ---
HPI - COVID General: Chief Complaint: COVID symptoms Stated Complaint: va sent, sob Time Seen by Provider: 10/25/23 10:36 COVID Results: No Data to Display PFSH ED PFSH: Medical History Anxiety Depression Gilbert's disease IBS (irritable bowel syndrome) PTSD (post-traumatic stress disorder) Von Willebrand disease Surgical History H/O vasectomy Social History Smoking and tobacco/nicotine status: never used tobacco/nicotine Alcohol intake: current Alcohol intake frequency: 3 or more drinks per day Alcohol type: beer Course Vital Signs: Vital signs: Vital Signs Temperature 98.4 F 10/25/23 10:26 Pulse Rate 82 10/25/23 10:26 Respiratory Rate 16 10/25/23 10:26 Blood Pressure 143/90 10/25/23 10:26 Pulse Oximetry 99 10/25/23 10:26 Oxygen Delivery Me thod Room Air 10/25/23 10:26 MDM - COVID Lab Data No Data to Display Discharge Plan Discharge Condition: Stable Prescriptions: No Action benzonatate [Tessalon Perles] 100 mg capsule 100 mg PO BID PRN (Reason: cough) Qty: 20 1RF tizanidine 4 mg tablet 4 mg PO TID PRN (Reason: muscle spasticity) Qty: 30 2RF celecoxib [Celebrex] 100 mg capsule 100 mg PO BID Qty: 60 2RF oxycodone 5 mg tablet 5 mg PO Q8H PRN (Reason: pain) 5 Days Qty: 15 0RF venlafaxine 150 mg capsule,extended release 24hr 150 mg PO DAILY Rx Instructions: pt states he has not taken this for a while. he is waiting for a visit with his psychiatist Referrals: Gerard Morrison DO [Primary Care Provider] - Coding Level of Care Code ED Plant Physiologist for [facility]
--- NOTE | 2023-10-25 10:51 | XR_ITS ---
WS: [id number] PORTABLE CHEST HISTORY: cough, congestion, fevers COMPARISON: 06/29/2012 Lungs are clear and well expanded. No pleural effusion or pneumothorax. Cardiac size: Normal. Mediastinum/Aorta: Normal mediastinum. No osseous abnormality seen. IMPRESSION: Unremarkable portable chest.
--- NOTE | 2023-10-25 10:52 | ED_ITS ---
HPI - URI/Sore Throat 2 General: Chief Complaint: COVID symptoms Stated Complaint: va sent, sob Time Seen by Provider: 10/25/23 10:36 Source: patient Mode of arrival: ambulatory Limitations: no limitations History of Present Illness: Patient is a 38-year-old male who presents to ED today after he was seen at the [facility] and referred to the emergency department. According to [facility] report patient was satting in the low 80s on room air and his heart rate was 160. Upon arrival to our ED patient is satting at 99% on room air and his pulse is in the 80s. Patient tells me he has been sick with nasal congestion, rhinorrhea, sinusitis, chest congestion/cough, and shortness of breath over the past 5 to 6 days. He feels like symptoms began worsening about 4 days ago. He has had fevers of up to 103. Patient denies sick contacts. Denies history of COPD/emphysema. He is an everyday smoker. No hemoptysis. No recent surgeries. He is not having any swelling to his lower extremities, calf pain, PND, or orthopnea. He is eating and drinking adequately. Patient states he has tried several OTC cough/cold medications which do not seem to be alleviating his symptoms. MD elicited complaint: fever, cough, rhinorrhea, nasal congestion and sinus pain Onset (ago): day(s) Consistency: constant Severity: moderate Description of mucous: clear Able to tolerate fluids by mouth: Yes Relieving factors: nothing Associated symptoms: Reports fever(s), nasal congestion and sinus pain; Deny abdominal pain, chills, chest pain, diarrhea, ear or mastoid pain, headache(s), nausea or vomiting Treatments prior to arrival: cold medicine Review of Systems 2 Const: Reports: fever(s), body aches, fatigue and malaise; Denies: chills Eyes: Denies: change in vision, blurry vision, photophobia, floaters or seeing flashes ENMT: Reports: nasal discharge, nasal congestion and sinus pain; Denies: throat pain, uvular edema, enlarged tonsils, odynophagia, hoarseness, mouth pain, swelling of lips/tongue, ear or mastoid pain, ear discharge or change in hearing Card: Denies: chest pain, palpitations, irregular heart rhythm, edema, swelling of feet/ankles, lightheadedness, syncope, pre-syncope, dyspnea on exertion, orthopnea, leg pain with exertion or acrocyanosis Resp: Reports: dyspnea, productive cough and chest congestion; Denies: wheezing, pain on inspiration or hemoptysis GI: Denies: abdominal pain, nausea, vomiting, heartburn or diarrhea : Denies: difficulty urinating or dysuria Musc: Denies: neck pain, back pain, extremity pain, extremity swelling, joint pain or joint swelling Skin/Breast: Denies: rash Neuro: Denies: headache(s), numbness in extremities, weakness in extremities, sensory changes or dizziness PFSH ED 2 PFSH: Medical History IBS (irritable bowel syndrome) Von Willebrand disease Gilbert's disease Anxiety Depression PTSD (post-traumatic stress disorder) Surgical History H/O vasectomy Social History Smoking and tobacco/nicotine status: never used tobacco/nicotine Alcohol intake: current Alcohol intake frequency: 3 or more drinks per day Alcohol type: beer Physical Exam 2 Const: COMMON NORMALS: no acute distress, average body habitus, patient oriented x3, no limitations, healthy appearing, alert and well nourished G ENERAL APPEARANCE: cooperative ORIENTATION/CONSCIOUSNESS: Yes awake, Yes oriented to person, Yes oriented to place and Yes oriented to time HENMT: COMMON NORMALS: normocephalic, atraumatic, external ears normal, EAC's normal, TM's normal bilaterally and Normal external nose present HEAD & SCALP: normal to inspection, normocephalic and atraumatic FACE & SINUS: n ormal facial exam, face symmetric and sinus tenderness NOSE: Normal external nose present EXTERNAL EAR: Yes external ears normal EXTERNAL AUDITORY CANAL: EAC's normal TYMPANIC MEMBRANE: TM's normal bilaterally MOUTH: N ormal oral and palatal mucosa present and lip normal THROAT: posterior oropharynx normal and tonsils normal; no uvular edema Eye: COMMON NORMALS: Equal, round and reactive pupils present and EOMs intact bilaterally GENERAL EYE: appearance normal, both eyes and all related structures and normal light reflex PUPIL: Yes Equal, round and reactive pupils present DIRECT OPHTHALMOSCOPY: Yes normal light reflex Neck/C-Spine: COMMON NORMALS: full ROM, no lymphadenopathy, supple and no meningeal signs Chest: COMMONS NORMALS: normal inspection of the chest and normal palpation of entire chest wall Resp: COMMON NORMALS: normal respiratory effort AUSCULTATION: rhonchi Cardio: COMMON NORMALS: regular rate and regular rhythm RATE: regular rate RHYTHM: regular rhythm GI: COMMON NORMALS: Normal to inspection, nondistended, normoactive bowel sounds present, Soft to palpation, non-tender, No hepatosplenomegaly present and no masses PALPATION: Yes Soft to palpation and Yes No hepatosplenomegaly present : COMMON NORMALS: Yes no CVA tenderness BLADDER/KIDNEY EXAM: Yes no CVA tenderness Back/Pelvis: COMMON NORMALS: no CVA tenderness and thoracic and lumbar spine normal to inspection Extremity: COMMON NORMALS: normal to inspection, no clubbing, cyanosis or edema, no calf tenderness and no pedal edema GENERAL: Yes normal exam except as noted Neuro: COMMON NORMALS: patient oriented x3 SENSORIUM/ORIENTATION: Yes alert, Yes oriented to person, Yes oriented to place and Yes oriented to time MENINGEAL SIGNS: Yes no meningeal signs Skin: COMMON NORMALS: no rashes or lesions noted GENERAL SKIN EXAM: no rashes or lesions noted Course 2 Vital Signs: Vital signs: Vital Signs Temperature 98.4 F 10/25/23 10:26 Pulse Rate 84 10/25/23 11:12 Respiratory Rate 18 10/25/23 11:12 Blood Pressure 143/90 10/25/23 10:26 Pulse Oximetry 100 10/25/23 11:12 Oxygen Delivery Me thod Room Air 10/25/23 11:12 MDM - URI/Sore Throat Medical Decision Making Patient appears in no acute distress here. He arrives with stable vital signs. Blood work overall is unremarkable. He has a normal white count and normal procalcitonin. CXR is unremarkable. Respiratory panel collected and pending. He will be called with any positive results. Will place him on steroids, albuterol, and nasal decongestant to help with symptoms. Differential Diagnosis Likely upper respiratory infection, sinusitis, viral infection, bronchitis and influenza Medical Records I reviewed the patient's medical records. Lab Data I reviewed the patient's lab results. 10/25/23 11:05 10/25/23 11:05 Laboratory Results WBC 10.96 10^3/uL (3.29-11.43) 10/25/23 11:05 RBC 5.08 10^6/uL (3.85-5.65) 10/25/23 11:05 Hgb 16.00 g/dL (11.27-16.99) 10/25/23 11:05 Hct 47.0 % (37-53) 10/25/23 11:05 MCV 92.5 fl (82-101) 10/25/23 11:05 MCH 31.5 pg (27-33) 10/25/23 11:05 MCHC 34.0 g/dL (30-55) 10/25/23 11:05 RDW 11.2 % (12.1-15.1) L 10/25/23 11:05 Plt Count 354 10^3/cmm (157-399) 10/25/23 11:05 MPV 9.1 fL (7.4-10.4) 10/25/23 11:05 Neut % (Auto) 73.2 % 10/25/23 11:05 Lymph % (Auto) 16.7 % 10/25/23 11:05 [place] % (Auto) 7.7 % 10/25/23 11:05 Eos % (Auto) 1.5 % 10/25/23 11:05 Baso % (Auto) 0.4 % 10/25/23 11:05 Neut # (Auto) 8.04 10^3/uL (1.8-7.7) H 10/25/23 11:05 Lymph # (Auto) 1.8 10^3/uL (0.8-4.8) 10/25/23 11:05 [place] # (Auto) 0.8 10^3/uL (0.2-0.9) 10/25/23 11:05 Eos # (Auto) 0.2 10^3/uL (0.0-0.8) 10/25/23 11:05 Baso # (Auto) 0.0 10^3/uL (0.0-0.1) 10/25/23 11:05 Nucleated RBC % (auto) 0 % 10/25/23 11:05 Nucleated RBCs # 0.0 /100WBC 10/25/23 11:05 Sodium 137 mmol/L (136-145) 10/25/23 11:05 Potassium 4.8 mmol/L (3.5-5.1) 10/25/23 11:05 Chloride 101 mmol/L (98-107) 10/25/23 11:05 Carbon Dioxide 28 mmol/L (22-29) 10/25/23 11:05 Anion Gap 12.8 (5-19) 10/25/23 11:05 BUN 10 mg/dL (6-20) 10/25/23 11:05 Creatinine 0.6 mg/dL (0.7-1.2) L 10/25/23 11:05 GFR Calculation 150.0 mL/min (90-130) H 10/25/23 11:05 Glucose 93 mg/dL (65-115) 10/25/23 11:05 Calculated Osmolality 283 mOsm/kg (285-295) L 10/25/23 11:05 Calcium 9.8 mg/dL (8.5-10.5) 10/25/23 11:05 Total Bilirubin 0.4 mg/dL (0.15-1.2) 10/25/23 11:05 AST 14 U/L (0-40) 10/25/23 11:05 ALT 21 U/L (0-41) 10/25/23 11:05 Alkaline Phosphatase 86 U/L (40-130) 10/25/23 11:05 Total Protein 7.5 g/dL (6.6-8.7) 10/25/23 11:05 Albumin 4.1 g/dL (3.5-5.2) 10/25/23 11:05 Globulin 3.4 g/dL (1.3-4.6) 10/25/23 11:05 Procalcitonin 0.03 ng/mL (0-0.5) 10/25/23 11:05 All radiology interpretation(s) finalized by discharge Discharge Plan Discharge Patient Disposition: Home Clinical Impression: Viral upper respiratory tract infection with cough Condition: Stable Prescriptions: New Sudafed 12 Hour 120 mg tablet extended release 120 mg PO BID PRN (Reason: nasal congestion) Qty: 14 0RF prednisone 10 mg tablet 10 mg PO DAILY 10 Days Qty: 27 0RF Rx Instructions: 6 tabs on days 1-2, 5 tabs on days 3, 4 tabs on day 4, 3 tabs on day 5, 2 tabs on day 6, 1 tab on day 7 albuterol sulfate 90 mcg/actuation HFA aerosol inhaler 2 inh INHALATION Q4H PRN (Reason: shortness of breath or wheezing) Qty: 6.7 0RF No Action sertraline 100 mg Tablet 100 mg PO DAILY ibuprofen 600 mg Tablet 600 mg PO TID PRN (Reason: Pain) Discharge Orders: Discharge ED (Routine); Ordered 10/25/23 Ordered By: Dannielle Nguyen Referrals: Gerard Morrison DO [Primary Care Provider] - Activity Restrictions/Additional Instructions: As we discussed your blood work here as well as your chest x-ray are unremarkable. We will contact you later today if your respiratory panel comes back positive for anything. Coding Level of Care Code ED Buyer Assistant for Marcial Huang
[2023-10-25] MEDS: ipratropium-albuterol 3 mL Neb INHALATION (11:07)
[2023-10-25 11:12] VITALS: PULSE 84; RESP 18; O2SAT 100
[2023-10-25 11:23] LABS: Basophils % 0.4 %; Eosinophils # 0.2 10^3/uL (0.0-0.8); Eosinophils % 1.5 %; Lymphocytes # 1.8 10^3/uL (0.8-4.8); Lymphocytes % 16.7 %; Mean Corpuscular Hemoglobin 31.5 pg (27-33); Mean Corpuscular Volume 92.5 fl (82-101); Mean Platelet Volume 9.1 fL (7.4-10.4); Monocytes # 0.8 10^3/uL (0.2-0.9); Monocytes % 7.7 %; Neutrophils # 8.04 10^3/uL (1.8-7.7); Neutrophils % 73.2 %; Nucleated Red Blood Cells % 0 %; Platelet Count 354 10^3/cmm (157-399); Red Blood Count 5.08 10^6/uL (3.85-5.65); Red Cell Distribution Width 11.2 % (12.1-15.1); White Blood Count 10.96 10^3/uL (3.29-11.43)
[2023-10-25 11:40] LABS: Alanine Aminotransferase 21 U/L (0-41); Albumin Level 4.1 g/dL (3.5-5.2); Alkaline Phosphatase 86 U/L (40-130); Anion Gap 12.8 (5-19); Aspartate Amino Transferase 14 U/L (0-40); Blood Urea Nitrogen 10 mg/dL (6-20); Calcium 9.8 mg/dL (8.5-10.5); Carbon Dioxide 28 mmol/L (22-29); Chloride 101 mmol/L (98-107); Globulin 3.4 g/dL (1.3-4.6); Glucose 93 mg/dL (65-115); Osmolality Calculated 283 mOsm/kg (285-295); Potassium 4.8 mmol/L (3.5-5.1); Sodium 137 mmol/L (136-145); Total Bilirubin 0.4 mg/dL (0.15-1.2); Total Protein 7.5 g/dL (6.6-8.7)
[2023-10-25 11:45] LABS: Procalcitonin 0.03 ng/mL (0-0.5)
[2023-10-25 12:32] VITALS: O2SAT 99
[2023-10-25 12:59] LABS: Adenovirus Not Detected (NOT DETECT); Chlamydia Pneumoniae Not Detected (NOT DETECT); Coronavirus 229E,HKU1,NL63,OC4 Not Detected (NOT DETECT); Human Metapneumovirus Not Detected (NOT DETECT); Human Rhinovirus/Enterovirus Detected (NOT DETECT); Influenza A Not Detected (NOT DETECT); Influenza A H1 Not Detected (NOT DETECT); Influenza A H1-2009 Not Detected (NOT DETECT); Influenza A H3 Not Detected (NOT DETECT); Influenza B Not Detected (NOT DETECT); Mycoplasma Pneumoniae Not Detected (NOT DETECT); Parainfluenza Virus Type 1 Not Detected (NOT DETECT); Parainfluenza Virus Type 2 Not Detected (NOT DETECT); Parainfluenza Virus Type 3 Not Detected (NOT DETECT); Parainfluenza Virus Type 4 Not Detected (NOT DETECT); Respiratory Syncytial Virus A Not Detected (NOT DETECT); Respiratory Syncytial Virus B Not Detected (NOT DETECT); SARS-COV-2 Not Detected (NOT DETECT)
== END 2023-10-25 12:41 | disposition home or self-care (01) ==
PROVIDERS: Emergency Provider Physician Assistant; PCP Emergency Medicine Emergency Medical Services
DX: J06.9 Acute upper respiratory infection, unspecified (principal); R05.9 Cough, unspecified
CPT/HCPCS: 36415; 71045; 80053; 84145; 85025; 87486; 87581; 87633; 94640; 99284

== ENCOUNTER → 2024-02-01 08:21 | Outpatient (BNVA) | payer OTHER, SELFPAY | PROVIDERS: PCP Emergency Medicine Emergency Medical Services; Referring Provider Emergency Medicine Emergency Medical Services; Visit Provider Physician Assistant | DX: M75.41 Impingement syndrome of right shoulder | CPT/HCPCS: 20610; 73030; 99203; J3301 ==

== ENCOUNTER 2024-04-13 09:01 | Outpatient (CLI) | payer OTHER, SELFPAY ==
--- NOTE | 2024-04-13 09:14 | MR_ITS ---
WS: [id number] MRI LUMBAR SPINE NONCONTRAST HISTORY: LOW BACK PAIN W/SCIATICA, LEFT pain. COMPARISON: None available. TECHNIQUE: Sagittal and axial multisequence imaging is submitted. Normal lumbar alignment with no compression fractures or marrow edema. Mild disc space narrowing and desiccation at L4-5 and L5-S1. Conus terminates normally at L1. L1-L2: Normal. L2-L3: Mild facet joint arthritis, RIGHT greater than LEFT. No stenosis or disc protrusion. L3-L4: Mild annular disc bulging encroaching upon the ventral thecal sac. Mild bilateral facet arthri tis. No significant stenosis. L4-L5: Mild diffuse annular disc bulge. Central disc protrusion extends into the subarticular recesse s. Disc protrusion contacts the traversing L5 nerve roots, LEFT greater than RIGHT. Mild ligamentum f lavum and facet arthritis. No significant foraminal narrowing. L5-S1: Mild disc bulge with a focal LEFT paracentral disc protrusion with annular fissure. Disc protr usion is contacting the LEFT S1 nerve root. The nerve root is enlarged and slightly edematous. Very m ild LEFT foraminal stenosis. Mild facet arthritis. Paraspinal soft tissues are normal. MR/MR lumbar spine wo con* [id number] IMPRESSION: 1. LEFT paracentral disc protrusion at L5-S1 contacts and displaces the LEFT 1 nerve root. There is mild enlargement and edema within the nerve root. 2. L4-5: Small central disc protrusion into the subarticular recesses. The dis c protrusion contacts the traversing L5 nerve roots, LEFT greater than RIGHT.
== END 2024-04-13 09:02 | disposition home or self-care (01) ==
PROVIDERS: PCP Family Medicine; Visit Provider Physician Assistant
DX: Z01.89 Encounter for other specified special examinations (principal); M47.816 Spondylosis without myelopathy or radiculopathy, lumbar region; M51.36 Other intervertebral disc degeneration, lumbar region; M51.26 Other intervertebral disc displacement, lumbar region; Q05.7 Lumbar spina bifida without hydrocephalus; M51.37 Other intervertebral disc degeneration, lumbosacral region; M47.817 Spondylosis without myelopathy or radiculopathy, lumbosacral region
CPT/HCPCS: 72148

== ENCOUNTER 2024-06-19 21:52 | Emergency (ER) | payer OTHER, SELFPAY ==
[2024-06-19 21:56] VITALS: BP 134/73; PULSE 103; RESP 16; TEMP 36.7; O2SAT 98
--- NOTE | 2024-06-20 00:07 | W.ED.RECABL ---
HPI - Recheck/Abnormal Lab/Rx General: Chief Complaint: General Medical Stated Complaint: Incision is bleeding from Surgery Time Seen by Provider: 06/19/24 23:27 Source: patient Mode of arrival: ambulatory Limitations: no limitations History of Present Illness: Patient is a nice 39-year-old male presents to ED today for evaluation of his surgical back incision bleeding. Patient states he underwent a microdiscectomy by Dr. Norris/neurosurgery at [place] earlier today. He states he was discharged home the same day. Patient states he noticed his dressing had blood on it. states when they changed it it also became saturated. states she looked at the surgical incision and noticed the skin adhesive/glue did not cover the entire incision and the very bottom portion was open and oozing. MD complaint: wound re-check Initial visit (ago): hour(s) Initial visit for: other (surgical site) Returns today for: wound recheck Symptoms since prior visit: no new symptoms Associated symptoms: none Related Data Home Medications Medication Instructions Recorded Confirmed ibuprofen 600 mg tablet 600 mg PO TID PRN Pain 10/25/23 03/07/24 bupropion HCl 100 mg tablet,12 hr 100 mg PO DAILY 02/01/24 03/07/24 sustained-release (Wellbutrin SR) Previous Rx's Medication Instructions Recorded albuterol sulfate 90 mcg/actuation 2 inh inhalation Q4H PRN shortness 10/25/23 aerosol inhaler of breath or wheezing #6.7 grams pseudoephedrine HCl 120 mg 120 mg PO BID PRN nasal congestion 10/25/23 tablet,extended release (Sudafed #14 tabs 12 Hour) cyclobenzaprine 5 mg tablet 5 mg PO TID PRN muscle spasm #20 03/07/24 tabs Allergies Allergy/AdvReac Type Severity Reaction Status Date / Time Penicillins Allergy rash Verified 06/19/24 22:01 Review of Systems Const: Denies: fever(s) Card: Denies: chest pain Resp: Denies: dyspnea GI: Denies: nausea or vomiting Musc: Reports: back pain (minimal ) Skin/Breast: Reports: other (bleeding surgical incision) Neuro: Denies: numbness in extremities, weakness in extremities, sensory changes or difficulty walking [facility] ED PFSH: Medical History IBS (irritable bowel syndrome) Von Willebrand disease Gilbert's disease Anxiety Depression PTSD (post-traumatic stress disorder) Surgical History H/O vasectomy Social History Smoking and tobacco/nicotine status: never used tobacco/nicotine Alcohol intake: current Alcohol intake frequency: 3 or more drinks per day Alcohol type: beer Physical Exam Const: COMMON NORMALS: no acute distress, average body habitus, patient oriented x3, no limitations, healthy appearing, alert and well nourished Back/Pelvis: BACK IMAGE (MALE): 1. 2. small vertical back incision appears clean; closed with skin adhesive/glue-most inferior portion of incision does not contain glue and has scant amount of oozing when area palpated probably from underlying hematoma normal post operative Extremity: GENERAL: Yes normal exam except as noted Neuro: COMMON NORMALS: patient oriented x3, moves all extremities, no focal motor deficits, no sensory deficits noted and gait normal SENSORIUM/ORIENTATION: Yes alert Skin: NARRATIVE SKIN EXAM: see above Course Vital Signs: Vital signs: Vital Signs Temperature 98.1 F 06/19/24 21:56 Pulse Rate 103 H 06/19/24 21:56 Respiratory Rate 16 06/19/24 21:56 Blood Pressure 134/73 06/19/24 21:56 Pulse Oximetry 98 06/19/24 21:56 Oxygen Delivery Me thod Room Air 06/19/24 21:56 MDM - Recheck/Abnormal Lab/Rx Medical Decision Making Bleeding very minimal. He is cleared from ED standpoint. He can follow up with surgeon in 1-2 days if bleeding continues. Area was cleaned/dressed prior to discharge. Return precautions given. No radiology studies performed this visit Discharge Plan Discharge Patient Disposition: Home Clinical Impression: Postoperative bleeding from incision Condition: Stable Prescriptions: No Action bupropion HCl [Wellbutrin SR] 100 mg tablet sustained-release 12 hr 100 mg PO DAILY cyclobenzaprine 5 mg tablet 5 mg PO TID PRN (Reason: muscle spasm) Qty: 20 0RF ibuprofen 600 mg Tablet 600 mg PO TID PRN (Reason: Pain) Sudafed 12 Hour 120 mg tablet extended release 120 mg PO BID PRN (Reason: nasal congestion) Qty: 14 0RF albuterol sulfate 90 mcg/actuation HFA aerosol inhaler 2 inh INHALATION Q4H PRN (Reason: shortness of breath or wheezing) Qty: 6.7 0RF Discharge Orders: Discharge ED (Routine); Ordered 06/20/24 Ordered By: Dannielle Nguyen Referrals: Lisette Emanuel MD [Primary Care Provider] - Activity Restrictions/Additional Instructions: As we discussed, you may contact your surgeon's office this week if bleeding persists. You may contact them sooner for severe worsening back pain, significant bleeding, wound dehiscence, or any other concerns you may have. Coding Level of Care Code ED Clinic Lpn for Marcial Huang
[2024-06-20 00:54] VITALS: BP 129/82; PULSE 78; RESP 18; O2SAT 96
== END 2024-06-20 00:44 | disposition home or self-care (01) ==
PROVIDERS: Emergency Provider Physician Assistant; PCP Family Medicine
DX: L76.22 Postprocedural hemorrhage of skin and subcutaneous tissue following other procedure (principal)
CPT/HCPCS: 99282

== ENCOUNTER 2024-12-11 14:41 | Outpatient (CLI) | payer OTHER, SELFPAY | END 2024-12-11 14:42 | disposition home or self-care (01) | LOC: SLEEP 14:43 | PROVIDERS: PCP Family Medicine; Visit Provider Family Medicine | DX: G47.33 Obstructive sleep apnea (adult) (pediatric) (principal) | CPT/HCPCS: G0399 ==

== ENCOUNTER → 2025-04-04 09:42 | Outpatient (BNVA) | payer OTHER, SELFPAY | PROVIDERS: PCP Family Medicine; Visit Provider Physician Assistant | DX: M75.41 Impingement syndrome of right shoulder (principal) | CPT/HCPCS: 73030; 99213 ==

== ENCOUNTER 2025-04-09 14:51 | Outpatient (CLI) | payer OTHER, SELFPAY ==
--- NOTE | 2025-04-09 15:00 | MR_ITS ---
WS: [id number] MRI RIGHT SHOULDER HISTORY: RIGHT SHOULDER PAIN WITH MOVEMENT COMPARISON: Radiograph 04/04/2025 TECHNIQUE: Multiplanar sequences of the shoulder joint are submitted. Minimal narrowing of the AC joint. Mild subacromial impingement by enthesopathy from the distal undersurface of the acromion. Very small amount of fluid in the subacromial bursa. Normal position of the biceps tendon. No os acromion. Normal position of the humeral head at the glenoid. No significant joint effusion. No fractures or marrow edema. Minimal subchondral cystic changes in the posterior lateral humeral head. No rotator cuff tendon tear. No muscle atrophy or edema. No labral tear. MR/MR shoulder RT wo con* [id number] IMPRESSION: 1. Mild subacromial impingement. 2. No rotator cuff tendon tear. 3. No labral tear. 4. Minimal AC joint arthropathy.
== END 2025-04-09 14:52 | disposition home or self-care (01) ==
LOC: RAD 14:51
PROVIDERS: PCP Family Medicine; Visit Provider Nurse Practitioner Family
DX: M75.41 Impingement syndrome of right shoulder (principal)
CPT/HCPCS: 73221

== ENCOUNTER 2025-04-12 11:48 | Emergency (ER) | payer OTHER, SELFPAY ==
--- OUTSIDE RECORDS SUMMARY | 2025-04-06 04:00 | XMS_ITS | Encounter Summary ---
Author Name [facility] Organization [facility] Address [address] [place] [address] Care Team Providers Care Brace Maker Name Role Phone PHI SALAMANCA Primary Care Provider Unavailabl e Insurance Providers: All historical and current Section Date Range: From patient's date of to the date document was created. This section includes the names of all active insurance providers for the patient. Insurance Provider Type of Coverage Plan Name Start of Policy Coverage End of Policy Coverage Group Number Member ID Insurance Provider's Telephone Number Policy Alberts's Name Patient's Relationship to Policy Alberts [facility] 2024 [facility] WNR Sep 27, 2024 [facility] [id number] KAREN GONZALES PATIENT [facility] Sep 27, 2018 [id number] [phone] KAREN GONZALES PATIENT Selected Encounter This section includes the information on record at [place] for the Encounter. Date/Time Encounter Type Encounter Description Reason Pro vider Source Apr 06, 2025 09:00 AM Outpatient Encounter COMMUNITY CARE CONSULT IHE Encounter Template Text not used by [facility] Plan of Treatment: Future Appointments (+ 6 months) and Future Tests (+/- 45 days) The Plan of Treatment section includes future care activities for the patient from all VA treatmentfacilities. This section includes future appointments and future orders which are active, pending or scheduled. Future Appointments This section includes appointments that were scheduled to occur 6 months from the date of the Encounter, up to a maximum of 20 appointments. The data comes from all [facility]. Appointment Date/Time Appointment Type Appointme nt Facility Name Apr 09, 2025 03:15 PM AMBULATORY - MEDICINE [facility] May 04, 2025 03:00 PM AMBULATORY - PSYCHIATRY [facility] May 14, 2025 03:30 PM AMBULATORY - MEDICINE [facility] Sep 11, 2025 01:00 PM AMBULATORY - MEDICINE [facility] Active, Pending, and Scheduled Orders This section includes a listing of several types of active, pending, and scheduled orders, including clinic medications orders, diagnostic test orders, procedure orders and consult orders; where the start date of the order is 45 days before the date of the Encounter or 45 days after the date of theEncounter. The data comes from all [facility]. Test Date/Time Test Type Test Details Facility Name Mar 22, 2025 09:12 AM Consult Order COMMUNITY CARE-ORTHOPEDICS [id number] Cons Receptionist Telephone Operator's Choice [facility] Mar 23, 2025 12:46 PM Consult Order COMMUNITY CARE-IMAGING [facility] [id number] [facility] Social History: Smoking Status (Most current) and Tobacco Use (All prior to encounter date) This section includes the most current, and the historical, smoking and tobacco- related health factors from the [place] facility where the Encounter took place. Current Smoking Status This section includes the most current smoking, or tobacco-related health factor, from the [place] facility where the Encounter took place. Date/Time Current Smoking Status Comment Dorys renteria Aug 12, 2022 10:00 AM AH-BPR SMOKING DEPLOYMENT YES DEVYNELSA [facility] Radiology Reports: +/- 30 days of the encounter Radiology Reports For cases when an order for radiology services may have been completed prior to the date of the Encounter, the report list includes the Radiology Reports that were completed up to 30 days before dateof the Encounter. For cases when an order for radiology services may have been completed after the date of the Encounter, the report list also includes the Radiology Reports that were completed up to30 days after date of the Encounter. The data comes from all [facility]. Date/Time Radiology Report Provider Source Mar 22, 2025 08:17 AM KNEE,LEFT, 3 VIEWS : DIANNE GONZALES [id number] -1985 M Exm Date: MAR 22, 2025@08:17 Req Phys: NENA GOMEZ Pat Loc: PB-OCTAVIANO PACT ECHO ALEXANDRA (Req'g Lo Img Loc: [facility] Service: [place] [address] (Case [id number] COMPLETE) KNEE,LEFT, 3 VIEWS (RAD Detailed) CPT:75606 Proc Modifiers : LEFT Reason for Study: left knee pain post fall Clinical History: Report Status: Verified Date Reported: MAR 22, 2025 Date Verified: MAR 22, 2025 Log Brander E-Sig: Report: 3 views of the left knee reveal a small osteophyte on the superior aspect of the patella. There is no acute osseous or adjacent soft tissue abnormality. Impression: No acute process Primary Interpreting Staff: YASMEEN BUTLER RADIOLOGIST (Log Brander, no e-sig) /YASMEEN Almeida [facility] Mar 22, 2025 08:17 AM SHOULDER,RIGHT,2 O R MORE VIEWS: DIANNE GONZALES [id number] -[id number] M Exm Date: MAR 22, 2025@08:17 Req Phys: NENA GOMEZ Pat Loc: PB-OCTAVIANO PACT ECHO ALEXANDRA (Req'g Lo Img Loc: [facility] Service: [place] [address] (Case [id number] COMPLETE) SHOULDER,RIGHT,2 OR MORE VIEWS (RAD Detailed) CPT:45136 Proc Modifiers : RIGHT Reason for Study: right shoulder pain post fall Clinical History: Report Status: Verified Date Reported: MAR 22, 2025 Date Verified: MAR 22, 2025 Log Brander E-Sig: Report: 3 views of the right shoulder reveal no acute osseous or adjacent soft tissue abnormality. Impression: No acute process Primary Interpreting Staff: YASMEEN BUTLER RADIOLOGIST (Log Brander, no e-sig) /YASMEEN Almeida [facility] Encounter Notes: All associated encounter notes This section contains the clinical notes associated to the Encounter. Date/Time Encounter Note(s) Provider Source Apr 06, 2025 09:00 AM LETTERS: LOCAL TITLE: COMMUNITY CARE-REFERRAL PB (AUTO-PRINT) STANDARD TITLE: LETTERS DATE OF NOTE: APR 06, 2025@09:00:42 ENTRY DATE: APR 06, 2025@09:00:42 AUTHOR: BIJAN OLIVAS COSIGNER: URGENCY: STATUS: COMPLETED Dianne Gonzales [address] [place], [place] [address] Dear DIANNE GONZALES, Your VA provider has referred you to a provider within the community for care. Your medical care for IMAGING MRI has been authorized with the Community Care Provider listed below. DO NOT REPORT TO THE [facility] Provider info: An appointment has been scheduled for you on: Apr 09, 2025 03:15 PM Office Name: [place] Address: [address] [place] [address] Address: [place] [address] Auth #: [id number] Referral Issue Date: 03-27-25 Expiration Date: 06-08-25 If you are unable to keep this appointment or the appointment is no longer needed, please contact the community provider above for notification/rescheduling and then call the [facility] [place] [facility] Office at [phone] Ext [phone]. If you need additional care/services not mentioned above, please contact your primary care provider for a new referral. Co-Payments: If you are required to pay a VA co-payment, you will be billed by the VA for each authorized visit that you attend. However, you are NOT REQUIRED to make co-payments to a Community Provider. Prescriptions: Your community provider may write a prescription related to the authorized care. If there is an immediate need for your prescriptions from your community care visit, you may be able to get up to a 14-day fill of your prescription at your own expense for the cost of the medication, and may seek reimbursement from the VA. If you require more than a 14-day supply or if the prescribed medication is not immediately needed, your community provider will send a prescription to a VA pharmacy so that the VA can provide you with your routine medication. In-network locations can be found at https://www.va.gov/find-loca tions/ Medical Devices: Your community provider may recommend that medical devices, adapted equipment, or other items be provided for the treatment or rehabilitation of your medical condition. Veterans are generally required to obtain these items through the Prosthetics and Sensory Aids Service (PSAS) in your referring facility. Emergency/Inpatient Services: You, your community provider, or your family must provide notification within 72hr or ER visit and/or admission by [phone]. Thank you for the opportunity to serve you and for your service to our great nation! LAYNE Weberhing [facility] Care in the Community [address] [facility] [place] [address] [facility] [facility]
--- OUTSIDE RECORDS SUMMARY | 2025-04-12 12:00 | XMS_ITS | Continuity of Care Document ---
Author Name [facility] Organization [facility] Care Team Providers Care Branner Machine Tender Name Role Phone [facility] Unavailable Unavailable Problems Combined list of problems from Department of Defense and Veterans Affairs facilities. It does not include entries that were removed or entered in error. Problem Status Onset Date Problem Type Date of Resolution Comments Source visit for: physical medical evaluation board (MEB) Inactive 07/27/20 06 Condition See DD Form 2807-1 and 2808 for more details.1. Depression/PTSD - Continue wellbutrin and trazodone. Continue group therapy. Follow-up with Psychiatry as scheduled.2. Proteinuria - Repeat UA ordered. Follow-up with PCM. DoD ELBOW SPRAIN ULNAR COLLATERAL LIGAMENT Inactive 07/21/20 06 Condition pain has resolved, instructed on to rtc if sxs worsen. DoD visit for: services physical Inactive 06/15/20 06 Condition DoD Patient Counseling: Inactive 04/21/20 06 Condition DoD BACK STRAIN Inactive 01/09/20 06 Condition DoD visit for: examination of subpopulation Inactive 10/01/19 06 Condition DoD CHRONIC POST-TRAUMATIC STRESS DISORDER Active Condition SM is to con tinue current care. He is to follow-up in two weeks. He is future-oriented and not at risk for suicide or homicide. He is to continue PTSD group. DoD MAJOR DEPRESSION RECURRENT MODERATE Active Condition DoD ADJUSTMENT DISORDER Active Condition DoD ADJUSTMENT DISORDER Active Condition Renew medications. Pt stopped Mirtazapine. Trial of trazodone.PTSD Group for help. DoD visit for: administrative purpose Inactive Condition DoD Anticipatory Guidance: Use Of Bicycle and Motorcycle Helmets Inactive Condition DoD Anticipatory Guidance: Unsafe Sexual Practices Active Condition DoD Anticipatory Guidance: Tobacco Use Inactive Condition DoD Anticipatory Guidance: Inadequate Physical Activity Inactive Condition DoD Anticipatory Guidance: Alcohol Use Inactive Condition DoD VIRAL DISEASE Active Condition resolv ing.no further w/u unless becomes symptomatic. DoD abdominal pain in the left upper belly (LUQ) Inactive Condition the abdominal exam was benign.labs benign.ct scan of abdomen wnl.no splenomagaly,no masses. suspect viral illness.doubt malaria/parasitic /ca.no further work up needed. [facility] Anxiety (SCT [id number]) Active Condition [place] [facility] Asymmetrical sensorineural hearing loss Active Condition [place] [facility] Bilateral tinnitus Active Condition [place] [facility] Chronic post-traumatic stress disorder (SNOMED CT 006471085) Active Condition [place] [facility] Depression (SCT [id number]) Active Condition [place] [facility] Exposure to potentially hazardous substance Active Condition [facility] Lumbar radiculopathy Active Condition Oct 09, 2024 Entered By: PHI SALAMANCA Comment: 06/19/2024 left L5 minimal invasive hemilaminectomy with partial medial facetectomy [place] [facility] Alcohol Dependence Inactive Condition 09/14/2023 [place] [facility] Eosinophilia (SNOMED CT [id number]) Inactive Condition 09/14/2023 [facility] Tobacco Use Disorder * (ICD-9-CM 305.1) Inactive Condition 09/14/2023 [place] [facility] Diagnosis: ICD-10-CM M25.511 Pain in right shoulder Active Diagnosis [facility] Diagnosis: ICD-10-CM F43.12 Post-traumatic stress disorder, chronic [facility] Diagnosis: ICD-10-CM Z46.1 Encounter for fitting and adjustment of hearing aid Active Diagnosis [place] [facility] Diagnosis: ICD-10-CM H93.13 Tinnitus, bilateral Active Diagnosis [place] [facility] Diagnosis: ICD-10-CM M54.16 Radiculopathy, lumbar region Active Diagnosis [facility] Diagnosis: ICD-10-CM F33.1 Major depressive disorder, recurrent, moderate Active Diagnosis [facility] Diagnosis: ICD-10-CM M25.552 Pain in left hip Active Diagnosis [facility] Diagnosis: ICD-10-CM Z02.89 Encounter for other administrative examinations Active Diagnosis [facility] Diagnosis: ICD-10-CM F32.A Depression, unspecified Active Diagnosis [facility] Diagnosis: ICD-10-CM R09.89 Oth symptoms and signs involving the circ and resp systems Active Diagnosis [facility] Medications Combined list of outpatient medications from Department of Defense and Veterans Affairs facilities.Medications provided include 1) outpatient medications from the last 15 months, and 2) patient-reported medications. Medication Details Route Status Patient Instructions Prescription Expires Prescription Number Last Dispense Date Ordering Provider Order Date Order Qty Source ACETAMINOPH EN 325MG TAB TAKE TWO TABLETS BY MOUTH FOUR TIMES A DAY NEEDED ORAL ACTIVE ABHINAV OLVERA 2022 [place] [facility] BUPROPION HCL 150MG 24HR TAB,SA TAKE ONE TABLET BY MOUTH EVERY MORNING FOR DEPRESSI ON SWALLOW WHOLE - DO NOT CRUSH OR CHEW. ORAL DISCONT INUED (EDIT) 12/05/2025 [id number] MARLYN HARDING R [address] [place] [address] [place] [facility] BUPROPION HCL 150MG 24HR TAB,SA TAKE ONE TABLET BY MOUTH EVERY MORNING FOR DEPRESSI ON SWALLOW WHOLE - DO NOT CRUSH OR CHEW. ORAL DISCONT INUED BY PROVIDE R 09/03/2024 [id number] 4 MARLYN HARDING R [address] [place] [address] [facility] BUPROPION HCL 150MG 24HR TAB,SA TAKE ONE TABLET BY MOUTH EVERY MORNING FOR DEPRESSI ON SWALLOW WHOLE - DO NOT CRUSH OR CHEW. ORAL DISCONT INUED 07/02/2024 [id number] 4 MARLYN HARDING R [address] [place] [address] [facility] BUPROPION HCL 150MG 24HR TAB,SA TAKE ONE TABLET BY MOUTH EVERY MORNING FOR DEPRESSI ON SWALLOW WHOLE - DO NOT CRUSH OR CHEW. ORAL DISCONT INUED 05/01/2024 [id number] 4 MARLYN HARDING R [address] [place] [address] [place] [facility] BUPROPION HCL 150MG 24HR TAB,SA TAKE ONE TABLET BY MOUTH EVERY MORNING FOR DEPRESSI ON SWALLOW WHOLE - DO NOT CRUSH OR CHEW. ORAL DISCONT INUED 11/03/2024 [id number] 4 MARLYN HARDING R [address] [place] [address] [place] [facility] BUPROPION HCL 300MG 24HR TAB,SA TAKE ONE TABLET BY MOUTH EVERY MORNING FOR DEPRESSI ON SWALLOW WHOLE - DO NOT CRUSH OR CHEW. ORAL ACTIVE 02/13/2026 [id number] 5 MARLYN HARDING R 2024 90 [facility] buPROPion HCl XL 150 MG ORAL TB24 TAKE ONE TABLET BY MOUTH EVERY MORNING FOR DEPRESSI ON SWALLOW WHOLE - DO NOT CRUSH OR CHEW. 02/01/2025 [id number] 4 JOSY HARDING R 2023 30 [facility] buPROPion HCl XL 150 MG ORAL TB24 TAKE ONE TABLET BY MOUTH EVERY MORNING FOR DEPRESSI ON SWALLOW WHOLE - DO NOT CRUSH OR CHEW. Discont inued 11/03/2024 [id number] 4 JOSY HARDING R 2023 30 [facility] DIAZEPAM 5MG TAB TAKE ONE TABLET BY MOUTH ONE-TIME AVOID TAKING WITH GRAPEFRU IT JUICE. FOR MRI ORAL ACTIVE 04/21/2025 [id number] 5 NAVNEET GOMEZ 2024 1 [facility] IBUPROFEN 600MG TAB TAKE ONE TABLET BY MOUTH THREE TIMES A DAY NEEDED ORAL ACTIVE ABHINAV OLVERA 2022 [facility] MELOXICAM 15MG TAB TAKE ONE TABLET BY MOUTH ONCE A DAY ORAL 03/23/2025 [id number] 4 PHI SALAMANCA 2023 90 [facility] TRAMADOL HCL 50MG TAB TAKE 1 TABLET BY MOUTH EVERY 6 HOURS NEEDED FOR PAIN ORAL DISCONT INUED BY PROVIDE R 04/28/2024 [id number] 4 PHI SALAMANCA 2023 40 [facility] VENLAFAXINE HCL 75MG 24HR CAP,SA TAKE ONE CAPSULE BY MOUTH EVERY MORNING FOR 6 DAYS, THEN TAKE TWO CAPSULES EVERY MORNING MOOD, PTSD, ANXIETY, PAIN WITH FOOD. DO NOT ABRUPTLY DISCONTI NUE MEDICATI ON. ORAL DISCONT INUED BY PROVIDE R 10/24/2025 [id number] 5 MARLYN HARDING R 2024 174 [facility] Allergies, Adverse Reactions, Alerts Combined list of allergies from Department of Defense and Veterans Affairs facilities. It does not include entries that were removed or entered in error. Substance Category Reaction Severity Reaction type Status Date Reported Comments Source PENICILLIN Propensity to adverse reactions to drug (finding) Urticaria active 7 [facility] PENICILLIN Propensity to adverse reactions to drug (finding) Eruption active 1 [facility] 15 PENICILLINS Drug allergy (disorder) Unknown active 5 [place] [address] PENICILLINS Drug allergy (disorder) Eruption of skin active 1 [facility], [facility] 15 Immunizations Combined list of available immunizations from the Department of Defense and Veterans Affairs facilities. 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 Source INFLUENZA, INJECTABLE, QUADRIVALENT, PRESERVATIVE FREE 2022 [facility] WISE LEFT DELTO ID [id number] A 150 complet ed [facility] COVID-19 (MODERNA), MRNA, LNP-S, PF, 100 MCG/0.5ML DOSE OR 50 MCG/0.25ML DOSE 3 2020 207 complet ed HISTORICA L INFORMATI ON - FROM OTHER [facility], [facility] COVID-19 (MODERNA), MRNA, LNP-S, PF, 100 MCG/0.5ML DOSE OR 50 MCG/0.25ML DOSE 2 2020 207 complet ed HISTORICA L INFORMATI ON - FROM OTHER [facility] COVID-19 (MODERNA), MRNA, LNP-S, PF, 100 MCG/0.5ML DOSE OR 50 MCG/0.25ML DOSE 1 2020 207 complet ed HISTORICA L INFORMATI ON - FROM OTHER [facility] INFLUENZA, INJECTABLE, QUADRIVALENT, PRESERVATIVE FREE 2019 150 complet ed [facility] HEP B, ADULT 2 2015 43 complet ed HISTORICA L INFORMATI ON - FROM OTHER [facility] INFLUENZA, UNSPECIFIED FORMULATION 1 2015 88 complet ed HISTORICA L INFORMATI ON - FROM OTHER [facility] HEP A-HEP B 1 2015 104 complet ed HISTORICA L INFORMATI ON - [facility] HEP A, PED/ADOL, 3 DOSE 2000 84 complet ed HISTORICA L INFORMATI ON - [facility] OTHER [facility] HEP A, PED/ADOL, 3 DOSE 1999 84 complet ed HISTORICA L INFORMATI ON - FROM OTHER REGISTRY, [facility] POLIO, UNSPECIFIED FORMULATION 3 1988 89 complet ed HISTORICA L INFORMATI ON - FROM OTHER REGISTRY, [facility] MMR 1 1984 03 complet ed HISTORICA L INFORMATI ON - [facility] OTHER [facility] DTAP 1983 20 complet ed HISTORICA L INFORMATI ON - FROM OTHER REGISTRY, [facility] DTAP 3 1983 20 complet ed HISTORICA L INFORMATI ON - FROM OTHER REGISTRY, [facility] POLIO, UNSPECIFIED FORMULATION 2 1983 89 complet ed HISTORICA L INFORMATI ON - FROM OTHER REGISTRY, [facility] DTAP 2 1983 20 complet ed HISTORICA L INFORMATI ON - FROM OTHER REGISTRY, [facility] DTAP 1 1983 20 complet ed HISTORICA L INFORMATI ON - FROM OTHER REGISTRY, [facility] POLIO, UNSPECIFIED FORMULATION 1 1983 89 complet ed HISTORICA L INFORMATI ON - FROM OTHER REGISTRY, [facility] Results Combined list of recent chemistry, hematology and other laboratory results from Department of Defense and Veterans Affairs, ranging from 15 months to all on record, depending upon the facility. Order Name Results Value Reference Range Date Interpretation Specimen Comments Source HGA1C HEMOGLOBIN A1C/HEMOGLOBI N.TOTAL IN BLOOD 5.4 4.0 - 6.0 09/14 Specimen Type: BLOOD No comment entered. Ordering Provider: PHI SALAMANCA Report Released Date/Time : May 02, 2024 10:59 AM Reporting Lab: [place] [facility] [address] [place] [address] Performin g Lab: [place] [facility] [address] [place] [address] [facility] CHOLESTEROL PANEL (PB) CHOLESTEROL [MASS/VOLUME] IN SERUM OR PLASMA 182 mg/dL 0 - 200 09/14 Specimen Type: PLASMA No comment entered. Ordering Provider: PHI SALAMANCA Report Released Date/Time : May 02, 2024 10:59 AM Reporting Lab: [place] [facility] [address] [place] [address] Performin g Lab: [place] [facility] [address] [place] [address] [facility] CHOLESTEROL PANEL (PB) TRIGLYCERIDE [MASS/VOLUME] IN SERUM OR PLASMA 90 mg/dL 0 - 150 09/14 Specimen Type: PLASMA No comment entered. Ordering Provider: PHI SALAMANCA Report Released Date/Time : May 02, 2024 10:59 AM Reporting Lab: [place] [facility] [address] [place] [address] Performin g Lab: [place] [facility] [address] [place] [address] [facility] CHOLESTEROL PANEL (PB) CHOLESTEROL IN LDL [MASS/VOLUME] IN SERUM OR PLASMA BY CALCULATION 91.7 mg/dL 09/14 Specimen Type: PLASMA No comment entered. Ordering Provider: PHI SALAMANCA Report Released Date/Time : May 02, 2024 10:59 AM Reporting Lab: [place] [facility] [address] [place] [address] Performin g Lab: [place] [facility] [address] [place] [address] 8 [facility] CHOLESTEROL PANEL (PB) CHOLESTEROL IN HDL [MASS/VOLUME] IN SERUM OR PLASMA 72.3 mg/dL 40 09/14 H Specimen Type: PLASMA No comment entered. Ordering Provider: PHI SALAMANCA Report Released Date/Time : May 02, 2024 10:59 AM Reporting Lab: [place] [facility] [address] [place] [address] Performin g Lab: [place] [facility] [address] [place] [address] 8 [facility] CHOLESTEROL PANEL (PB) CHOLESTEROL IN HDL/CHOLESTER OL.TOTAL [MASS RATIO] IN SERUM OR PLASMA 39.7 25 09/14 Specimen Type: PLASMA No comment entered. Ordering Provider: PHI SALAMANCA Report Released Date/Time : May 02, 2024 10:59 AM Reporting Lab: [place] [facility] [address] [place] [address] Performin g Lab: [place] [facility] [address] [place] [address] 8 [facility] VITAMIN D, 25-HYDROXY 25-HYDROXYVIT ALICIA D3 [MASS/VOLUME] IN SERUM OR PLASMA 35.3 ng/mL 30 - 96 09/14 Specimen Type: SERUM No comment entered. Ordering Provider: PHI SALAMANCA Report Released Date/Time : May 02, 2024 10:59 AM Reporting Lab: [place] [facility] [address] [place] [address] Performin g Lab: [place] [facility] [address] [place] [address] [facility] CBC LEUKOCYTES [#/VOLUME] IN BLOOD BY AUTOMATED COUNT 3.9 10*3/u L 3.6 - 11.2 09/14 Specimen Type: BLOOD No comment entered. Ordering Provider: PHI SALAMANCA Report Released Date/Time : May 02, 2024 10:59 AM Reporting Lab: [place] [facility] [address] [place] [address] Performin g Lab: [place] [facility] [address] [place] [address] [facility] CBC ERYTHROCYTES [#/VOLUME] IN BLOOD BY AUTOMATED COUNT 5.31 10*6/u L 4.10 - 5.70 09/14 Specimen Type: BLOOD No comment entered. Ordering Provider: PHI SALAMANCA Report Released Date/Time : May 02, 2024 10:59 AM Reporting Lab: [place] [facility] [address] [place] [address] Performin g Lab: [place] [facility] [address] [place] [address] 8 [facility] CBC HEMOGLOBIN [MASS/VOLUME] IN BLOOD 16.6 g/dL 13.1 - 16.8 09/14 Specimen Type: BLOOD No comment entered. Ordering Provider: PHI SALAMANCA Report Released Date/Time : May 02, 2024 10:59 AM Reporting Lab: [place] [facility] [address] [place] [address] Performin g Lab: [place] [facility] [address] [place] [address] [facility] CBC HEMATOCRIT [VOLUME FRACTION] OF BLOOD 48.9 38.2 - 48.4 09/14 H Specimen Type: BLOOD No comment entered. Ordering Provider: PHI SALAMANCA Report Released Date/Time : May 02, 2024 10:59 AM Reporting Lab: [place] [facility] [address] [place] [address] Performin g Lab: [place] [facility] [address] [place] [address] [facility] CBC MCV [ENTITIC VOLUME] BY AUTOMATED COUNT 92.1 fL 80.0 - 100.0 09/14 Specimen Type: BLOOD No comment entered. Ordering Provider: PHI SALAMANCA Report Released Date/Time : May 02, 2024 10:59 AM Reporting Lab: [place] [facility] [address] [place] [address] Performin g Lab: [place] [facility] [address] [place] [address] 8 [facility] CBC MCH [ENTITIC MASS] BY AUTOMATED COUNT 31.3 pg 27.0 - 34.0 09/14 Specimen Type: BLOOD No comment entered. Ordering Provider: PHI SALAMANCA Report Released Date/Time : May 02, 2024 10:59 AM Reporting Lab: [place] [facility] [address] [place] [address] Performin g Lab: [place] [facility] [address] [place] [address] 8 [facility] CBC MCHC [MASS/VOLUME] BY AUTOMATED COUNT 33.9 g/dL 33.0 - 36.0 09/14 Specimen Type: BLOOD No comment entered. Ordering Provider: PHI SALAMANCA Report Released Date/Time : May 02, 2024 10:59 AM Reporting Lab: [place] [facility] [address] [place] [address] Performin g Lab: [place] [facility] [address] [place] [address] [facility] CBC PLATELETS [#/VOLUME] IN BLOOD BY AUTOMATED COUNT 280 10*3/u L 150 - 400 09/14 Specimen Type: BLOOD No comment entered. Ordering Provider: PHI SALAMANCA Report Released Date/Time : May 02, 2024 10:59 AM Reporting Lab: [place] [facility] [address] [place] [address] Performin g Lab: [place] [facility] [address] [place] [address] [facility] CBC PLATELET MEAN VOLUME [ENTITIC VOLUME] IN BLOOD BY AUTOMATED COUNT 9.9 fL 7.5 - 11.2 09/14 Specimen Type: BLOOD No comment entered. Ordering Provider: PHI SALAMANCA Report Released Date/Time : May 02, 2024 10:59 AM Reporting Lab: [place] [facility] [address] [place] [address] Performin g Lab: [place] [facility] [address] [place] [address] [facility] CBC ERYTHROCYTE DISTRIBUTION WIDTH [RATIO] BY AUTOMATED COUNT 11.9 11.8 - 15.1 09/14 Specimen Type: BLOOD No comment entered. Ordering Provider: PHI SALAMANCA Report Released Date/Time : May 02, 2024 10:59 AM Reporting Lab: [place] [facility] [address] [place] [address] Performin g Lab: [place] [facility] [address] [place] [address] 8 [facility] CBC LYMPHOCYTES/1 00 LEUKOCYTES IN BLOOD BY AUTOMATED COUNT 40.8 09/14 Specimen Type: BLOOD No comment entered. Ordering Provider: PHI SALAMANCA Report Released Date/Time : May 02, 2024 10:59 AM Reporting Lab: [place] [facility] [address] [place] [address] Performin g Lab: [place] [facility] [address] [place] [address] 8 [facility] CBC MONOCYTES/100 LEUKOCYTES IN BLOOD BY AUTOMATED COUNT 10.2 09/14 Specimen Type: BLOOD No comment entered. Ordering Provider: PHI SALAMANCA Report Released Date/Time : May 02, 2024 10:59 AM Reporting Lab: [place] [facility] [address] [place] [address] Performin g Lab: [place] [facility] [address] [place] [address] [facility] CBC NEUTROPHILS/1 00 LEUKOCYTES IN BLOOD BY AUTOMATED COUNT 42.3 09/14 Specimen Type: BLOOD No comment entered. Ordering Provider: PHI SALAMANCA Report Released Date/Time : May 02, 2024 10:59 AM Reporting Lab: [place] [facility] [address] [place] [address] Performin g Lab: [place] [facility] [address] [place] [address] 8 [facility] CBC EOSINOPHILS/1 00 LEUKOCYTES IN BLOOD BY AUTOMATED COUNT 5.9 09/14 Specimen Type: BLOOD No comment entered. Ordering Provider: PHI SALAMANCA Report Released Date/Time : May 02, 2024 10:59 AM Reporting Lab: [place] [facility] [address] [place] [address] Performin g Lab: [place] [facility] [address] [place] [address] [facility] CBC BASOPHILS/100 LEUKOCYTES IN BLOOD BY AUTOMATED COUNT 0.8 09/14 Specimen Type: BLOOD No comment entered. Ordering Provider: PHI SALAMANCA Report Released Date/Time : May 02, 2024 10:59 AM Reporting Lab: [place] [facility] [address] [place] [address] Performin g Lab: [place] [facility] [address] [place] [address] 8 [facility] CBC LYMPHOCYTES [#/VOLUME] IN BLOOD BY AUTOMATED COUNT 1.60 10*3/u L 0.77 - 4.50 09/14 Specimen Type: BLOOD No comment entered. Ordering Provider: PHI SALAMANCA Report Released Date/Time : May 02, 2024 10:59 AM Reporting Lab: [place] [facility] [address] [place] [address] Performin g Lab: [place] [facility] [address] [place] [address] [facility] CBC MONOCYTES [#/VOLUME] IN BLOOD BY AUTOMATED COUNT 0.40 10*3/u L 0.19 - 0.8 09/14 Specimen Type: BLOOD No comment entered. Ordering Provider: PHI SALAMANCA Report Released Date/Time : May 02, 2024 10:59 AM Reporting Lab: [place] [facility] [address] [place] [address] Performin g Lab: [place] [facility] [address] [place] [address] [facility] CBC NEUTROPHILS [#/VOLUME] IN BLOOD BY AUTOMATED COUNT 1.66 10*3/u L 2.10 - 8.00 09/14 L Specimen Type: BLOOD No comment entered. Ordering Provider: PHI SALAMANCA Report Released Date/Time : May 02, 2024 10:59 AM Reporting Lab: [place] [facility] [address] [place] [address] Performin g Lab: [place] [facility] [address] [place] [address] 8 [facility] CBC EOSINOPHILS [#/VOLUME] IN BLOOD BY AUTOMATED COUNT 0.23 10*3/u L 0.00 - 0.60 09/14 Specimen Type: BLOOD No comment entered. Ordering Provider: PHI SALAMANCA Report Released Date/Time : May 02, 2024 10:59 AM Reporting Lab: [place] [facility] [address] [place] [address] Performin g Lab: [place] [facility] [address] [place] [address] 8 [facility] CBC BASOPHILS [#/VOLUME] IN BLOOD BY AUTOMATED COUNT 0.03 10*3/u L 0.00 - 0.20 09/14 Specimen Type: BLOOD No comment entered. Ordering Provider: PHI SALAMANCA Report Released Date/Time : May 02, 2024 10:59 AM Reporting Lab: [place] [facility] [address] [place] [address] Performin g Lab: [place] [facility] [address] [place] [address] [facility] CBC PLATELETS RETICULATED/1 00 PLATELETS IN BLOOD BY AUTOMATED COUNT 2.0 1.0 - 7.0 09/14 Specimen Type: BLOOD No comment entered. Ordering Provider: PHI SALAMANCA Report Released Date/Time : May 02, 2024 10:59 AM Reporting Lab: [place] [facility] [address] [place] [address] Performin g Lab: [place] [facility] [address] [place] [address] 8 [facility] CBC IMMATURE GRANULOCYTES/ 100 LEUKOCYTES IN BLOOD BY AUTOMATED COUNT 0.0 09/14 Specimen Type: BLOOD No comment entered. Ordering Provider: PHI SALAMANCA Report Released Date/Time : May 02, 2024 10:59 AM Reporting Lab: [place] [facility] [address] [place] [address] Performin g Lab: [place] [facility] [address] [place] [address] [facility] CBC IMMATURE GRANULOCYTES [#/VOLUME] IN BLOOD BY AUTOMATED COUNT 0.00 10*3/u L 0.00 - 0.05 09/14 Specimen Type: BLOOD No comment entered. Ordering Provider: PHI SALAMANCA Report Released Date/Time : May 02, 2024 10:59 AM Reporting Lab: [place] [facility] [address] [place] [address] Performin g Lab: [place] [facility] [address] [place] [address] [facility] TSH (MA-PB) THYROTROPIN [UNITS/VOLUME ] IN SERUM OR PLASMA 1.424 u[IU]/ mL 0.47 - 5 09/14 Specimen Type: SERUM No comment entered. Ordering Provider: PHI SALAMANCA Report Released Date/Time : May 02, 2024 10:59 AM Reporting Lab: [place] [facility] [address] [place] [address] Performin g Lab: [place] [facility] [address] [place] [address] 8 [facility] COMPREHENSI VE METABOLIC PANEL CREATININE [MASS/VOLUME] IN SERUM OR PLASMA 0.84 mg/dL 0.7 - 1.3 09/14 Specimen Type: PLASMA No comment entered. Ordering Provider: PHI SALAMANCA Report Released Date/Time : May 02, 2024 10:59 AM Reporting Lab: [place] [facility] [address] [place] [address] Performin g Lab: [place] [facility] [address] [place] [address] 8 [facility] COMPREHENSI VE METABOLIC PANEL UREA NITROGEN [MASS/VOLUME] IN SERUM OR PLASMA 8 mg/dL 9 - 25 09/14 L Specimen Type: PLASMA No comment entered. Ordering Provider: PHI SALAMANCA Report Released Date/Time : May 02, 2024 10:59 AM Reporting Lab: [place] [facility] [address] [place] [address] Performin g Lab: [place] [facility] [address] [place] [address] 8 [facility] COMPREHENSI VE METABOLIC PANEL GLUCOSE [MASS/VOLUME] IN SERUM OR PLASMA 106 mg/dL 72 - 99 09/14 H Specimen Type: PLASMA No comment entered. Ordering Provider: PHI SALAMANCA Report Released Date/Time : May 02, 2024 10:59 AM Reporting Lab: [place] [facility] [address] [place] [address] Performin g Lab: [place] [facility] [address] [place] [address] [facility] [place] [facility] COMPREHENSI VE METABOLIC PANEL SODIUM [MOLES/VOLUME ] IN SERUM OR PLASMA 139 meq/L 136 - 145 09/14 Specimen Type: PLASMA No comment entered. Ordering Provider: PHI SALAMANCA Report Released Date/Time : May 02, 2024 10:59 AM Reporting Lab: [place] [facility] [address] [place] [address] Performin g Lab: [place] [facility] [address] [place] [address] [place] [facility] COMPREHENSI VE METABOLIC PANEL POTASSIUM [MOLES/VOLUME ] IN SERUM OR PLASMA 4.3 meq/L 3.5 - 5 09/14 Specimen Type: PLASMA No comment entered. Ordering Provider: PHI SALAMANCA Report Released Date/Time : May 02, 2024 10:59 AM Reporting Lab: [place] [facility] [address] [place] [address] Performin g Lab: [place] [facility] [address] [place] [address] [place] [facility] COMPREHENSI VE METABOLIC PANEL CHLORIDE [MOLES/VOLUME ] IN SERUM OR PLASMA 106 meq/L 98 - 107 09/14 Specimen Type: PLASMA No comment entered. Ordering Provider: PHI SALAMANCA Report Released Date/Time : May 02, 2024 10:59 AM Reporting Lab: [place] [facility] [address] [place] [address] Performin g Lab: [place] [facility] [address] [place] [address] [place] [facility] COMPREHENSI VE METABOLIC PANEL CARBON DIOXIDE, TOTAL [MOLES/VOLUME ] IN SERUM OR PLASMA 24 meq/L 22 - 31 09/14 Specimen Type: PLASMA No comment entered. Ordering Provider: PHI SALAMANCA Report Released Date/Time : May 02, 2024 10:59 AM Reporting Lab: [place] [facility] [address] [place] [address] Performin g Lab: [place] [facility] [address] [place] [address] 8 [facility] COMPREHENSI VE METABOLIC PANEL CALCIUM [MASS/VOLUME] IN SERUM OR PLASMA 9.4 mg/dL 8.4 - 10.4 09/14 Specimen Type: PLASMA No comment entered. Ordering Provider: PHI SALAMANCA Report Released Date/Time : May 02, 2024 10:59 AM Reporting Lab: [place] [facility] [address] [place] [address] Performin g Lab: [place] [facility] [address] [place] [address] 8 [facility] COMPREHENSI VE METABOLIC PANEL PROTEIN [MASS/VOLUME] IN SERUM OR PLASMA 6.7 g/dL 6 - 8.6 09/14 Specimen Type: PLASMA No comment entered. Ordering Provider: PHI SALAMANCA Report Released Date/Time : May 02, 2024 10:59 AM Reporting Lab: [place] [facility] [address] [place] [address] 8 Performin g Lab: [place] [facility] [address] [place] [address] [facility] COMPREHENSI VE METABOLIC PANEL ALBUMIN [MASS/VOLUME] IN SERUM OR PLASMA 4.2 g/dL 3.4 - 5 09/14 Specimen Type: PLASMA No comment entered. Ordering Provider: PHI SALAMANCA Report Released Date/Time : May 02, 2024 10:59 AM Reporting Lab: [place] [facility] [address] [place] [address] Performin g Lab: [place] [facility] [address] [place] [address] [facility] COMPREHENSI VE METABOLIC PANEL BILIRUBIN.TOT AL [MASS/VOLUME] IN SERUM OR PLASMA 1.8 mg/dL 0.2 - 1.2 09/14 H Specimen Type: PLASMA No comment entered. Ordering Provider: PHI SALAMANCA Report Released Date/Time : May 02, 2024 10:59 AM Reporting Lab: [place] [facility] [address] [place] [address] Performin g Lab: [place] [facility] [address] [place] [address] [facility] COMPREHENSI VE METABOLIC PANEL ALKALINE PHOSPHATASE [ENZYMATIC ACTIVITY/VOLU ME] IN SERUM OR PLASMA 72 U/L 40 - 150 09/14 Specimen Type: PLASMA No comment entered. Ordering Provider: PHI SALAMANCA Report Released Date/Time : May 02, 2024 10:59 AM Reporting Lab: [place] [facility] [address] [place] [address] Performin g Lab: [place] [facility] [address] [place] [address] [facility] COMPREHENSI VE METABOLIC PANEL ASPARTATE AMINOTRANSFER ASE [ENZYMATIC ACTIVITY/VOLU ME] IN SERUM OR PLASMA 46 U/L 5 - 34 09/14 H Specimen Type: PLASMA No comment entered. Ordering Provider: PHI SALAMANCA Report Released Date/Time : May 02, 2024 10:59 AM Reporting Lab: [place] [facility] [address] [place] [address] Performin g Lab: [place] [facility] [address] [place] [address] [facility] COMPREHENSI VE METABOLIC PANEL ALANINE AMINOTRANSFER ASE [ENZYMATIC ACTIVITY/VOLU ME] IN SERUM OR PLASMA 34 U/L 8 - 40 09/14 Specimen Type: PLASMA No comment entered. Ordering Provider: PHI SALAMANCA Report Released Date/Time : May 02, 2024 10:59 AM Reporting Lab: [place] [facility] [address] [place] [address] Performin g Lab: [place] [facility] [address] [place] [address] [facility] COMPREHENSI VE METABOLIC PANEL GLOMERULAR FILTRATION RATE/1.73 SQ M.PREDICTED [VOLUME RATE/AREA] IN SERUM, PLASMA OR BLOOD BY CREATININE-BA SED FORMULA (CKD-EPI 2020) 113 09/14 Specimen Type: PLASMA No comment entered. Ordering Provider: PHI SALAMANCA Report Released Date/Time : May 02, 2024 10:59 AM Reporting Lab: [place] [facility] [address] [place] [address] Performin g Lab: [place] [facility] [address] [place] [address] [facility] PROST. SPECIFIC AG.(PB-STL) PROSTATE SPECIFIC AG [MASS/VOLUME] IN SERUM OR PLASMA 1.86 ng/mL 0 - 4 09/13 Specimen Type: SERUM No comment entered. Ordering Provider: ABHINAV OLVERA Report Released Date/Time : Sep 13, 2023 02:56 PM Reporting Lab: [place] [facility] [address] [place] [address] Performin g Lab: [place] [facility] [address] [place] [address] 8 [facility] TSH (MA-PB-STL) THYROTROPIN [UNITS/VOLUME ] IN SERUM OR PLASMA 3.472 u[IU]/ mL 0.47 - 5 09/13 Specimen Type: SERUM No comment entered. Ordering Provider: ABHINAV OLVERA Report Released Date/Time : Sep 13, 2023 07:46 AM Reporting Lab: [place] [facility] [address] [place] [address] Performin g Lab: [place] [facility] [address] [place] [address] [facility] FREE T4 THYROXINE (T4) FREE [MASS/VOLUME] IN SERUM OR PLASMA 0.95 ng/dL 0.7 - 1.48 09/13 Specimen Type: SERUM No comment entered. Ordering Provider: ABHINAV OLVERA Report Released Date/Time : Sep 13, 2023 07:46 AM Reporting Lab: [place] [facility] [address] [place] [address] Performin g Lab: [place] [facility] [address] [place] [address] 8 [facility] CHOLESTEROL PANEL (PB) CHOLESTEROL [MASS/VOLUME] IN SERUM OR PLASMA 199 mg/dL 0 - 200 12/18 /2023 Specimen Type: PLASMA No comment entered. Ordering Provider: ABHINAV OLVERA Report Released Date/Time : Sep 13, 2023 07:46 AM Reporting Lab: [place] [facility] [address] [place] [address] Performin g Lab: [place] [facility] [address] [place] [address] [facility] CHOLESTEROL PANEL (PB) TRIGLYCERIDE [MASS/VOLUME] IN SERUM OR PLASMA 112 mg/dL 0 - 150 09/13 Specimen Type: PLASMA No comment entered. Ordering Provider: ABHINAV OLVERA Report Released Date/Time : Sep 13, 2023 07:46 AM Reporting Lab: [place] [facility] [address] [place] [address] Performin g Lab: [place] [facility] [address] [place] [address] [facility] CHOLESTEROL PANEL (PB) CHOLESTEROL IN LDL [MASS/VOLUME] IN SERUM OR PLASMA BY CALCULATION 109.6 mg/dL 09/13 Specimen Type: PLASMA No comment entered. Ordering Provider: ABHINAV OLVERA Report Released Date/Time : Sep 13, 2023 07:46 AM Reporting Lab: [place] [facility] [address] [place] [address] Performin g Lab: [place] [facility] [address] [place] [address] 8 [facility] CHOLESTEROL PANEL (PB) CHOLESTEROL IN HDL [MASS/VOLUME] IN SERUM OR PLASMA 67.0 mg/dL 40 09/13 H Specimen Type: PLASMA No comment entered. Ordering Provider: ABHINAV OLVERA Report Released Date/Time : Sep 13, 2023 07:46 AM Reporting Lab: [place] [facility] [address] [place] [address] Performin g Lab: [place] [facility] [address] [place] [address] 8 [facility] CHOLESTEROL PANEL (PB) CHOLESTEROL IN HDL/CHOLESTER OL.TOTAL [MASS RATIO] IN SERUM OR PLASMA 33.7 25 12/18 /2023 Specimen Type: PLASMA No comment entered. Ordering Provider: ABHINAV OLVERA Report Released Date/Time : Sep 13, 2023 07:46 AM Reporting Lab: [place] [facility] [address] [place] [address] Performin g Lab: [place] [facility] [address] [place] [address] [place] [facility] Vital Signs Combined list of inpatient and outpatient Vital Signs from Department of Defense and Veterans Affairs, ranging from 12 months to all on record, depending upon the facility. Vital Sign Value Date Comments Source SYSTOLIC BLOOD PRESSURE 134 03/22/2025 08:24:00 [place] [facility] DIASTOLIC BLOOD PRESSURE 80 03/22/2025 08:24:00 [place] [facility] PULSE OXIMETRY 98 % 03/22/2025 08:24:00 [facility] TEMPERATURE 97.9 03/22/2025 08:24:00 [place] [facility] PULSE 77 03/22/2025 08:24:00 [place] [facility] SYSTOLIC BLOOD PRESSURE 138 12/04/2024 15:30:00 [place] [facility] DIASTOLIC BLOOD PRESSURE 86 12/04/2024 15:30:00 [facility] PULSE OXIMETRY 98 12/04/2024 15:30:00 [facility] [place] [facility] WEIGHT 197.5 12/04/2024 15:30:00 [facility] BMI 25 kg/m2 12/04/2024 15:30:00 [place] [facility] PAIN 5 12/04/2024 15:30:00 [place] [facility] TEMPERATURE 97.8 12/04/2024 15:30:00 [place] [facility] PULSE 73 12/04/2024 15:30:00 [place] [facility] RESPIRATION 20 12/04/2024 15:30:00 [facility] SYSTOLIC BLOOD PRESSURE 131 10/23/2024 15:00:38 [place] [facility] DIASTOLIC BLOOD PRESSURE 88 10/23/2024 15:00:38 [place] [facility] PULSE OXIMETRY 99 10/23/2024 15:00:38 [facility] [place] [facility] WEIGHT 196.7 10/23/2024 15:00:38 [place] [facility] BMI 25 kg/m2 10/23/2024 15:00:38 [place] [facility] PAIN 7 10/23/2024 15:00:38 [place] [facility] HEIGHT 74 10/23/2024 15:00:38 [place] [facility] TEMPERATURE 98.4 10/23/2024 15:00:38 [place] [facility] PULSE 79 10/23/2024 15:00:38 [place] [facility] RESPIRATION 20 10/23/2024 15:00:38 [place] [facility] SYSTOLIC BLOOD PRESSURE 127 09/12/2024 14:00:00 [place] [facility] DIASTOLIC BLOOD PRESSURE 86 09/12/2024 14:00:00 [place] [facility] PULSE OXIMETRY 99 09/12/2024 14:00:00 [facility] [place] [facility] WEIGHT 190.0 09/12/2024 14:00:00 [place] [facility] BMI 24 kg/m2 09/12/2024 14:00:00 [place] [facility] PAIN 5 09/12/2024 14:00:00 [place] [facility] TEMPERATURE 98.1 09/12/2024 14:00:00 [place] [facility] PULSE 81 09/12/2024 14:00:00 [place] [facility] RESPIRATION 17 09/12/2024 14:00:00 [place] [facility] SYSTOLIC BLOOD PRESSURE 124 06/05/2024 14:20:00 [place] [facility] DIASTOLIC BLOOD PRESSURE 86 06/05/2024 14:20:00 [place] [facility] PULSE OXIMETRY 100 06/05/2024 14:20:00 [facility] [place] [facility] WEIGHT 188.8 06/05/2024 14:20:00 [place] [facility] BMI 24 kg/m2 06/05/2024 14:20:00 [place] [facility] PAIN 6 06/05/2024 14:20:00 [place] [facility] HEIGHT 74 06/05/2024 14:20:00 [place] [facility] TEMPERATURE 98.5 06/05/2024 14:20:00 [place] [facility] PULSE 80 06/05/2024 14:20:00 [place] [facility] RESPIRATION 18 06/05/2024 14:20:00 [facility] Encounters Combined list of: 1) Encounters from Department of Veterans Affairs facilities going backup to the last 18 months, not all VA inpatient encounters are included; 2) Encounters from the Department of Defense facilities going backup to 280 months. Location Location Details Encounter Type Encounter Number Reason For Visit Attending Provider ADM Date DC Date Status Disposition Source [place] [facility]Inte rnal Medicine) OUTPATIENT [id number] JUS PENA 07/02 Released w/o Limitations [place] [facility])(In ternal Medicin e) [facility] OUTPATIENT [id number] JOSE AVILEZ 10/01 Released [place]/o Limitations [place] [id number] HEAR SAILAJA DESOUZA 10/16 [place] [facility] OUTPATIENT [id number] ALMITA Moore 10/19 [place] [facility] [place] [facility] [place] OUTPATIENT [id number] 20 y/o male for f/u XIOMARA JENNIFER P 01/08 Released with Work/Duty Limitations [facility] [place] [employer] [facility] OUTPATIENT [id number] PTSD -poorly control ed. RODRIGO BELTRÁN 03/16 [place] [facility] [facility]PATIENT [id number] grp GLENYS PERRIN 03/24 [place] [facility] [facility] [id number] PTSD GLENYS PERRIN 03/31 [place] [facility]) [place] [id number] EST RODRIGO BELTRÁN Brock 04/12 [place] [facility] TELE CONSULT [id number] Deploym ent RODRIGO BELTRÁN [place] 04/12 [place] [facility] [id number] JOSE BELTRÁNEW Brock 04/14 [place] [facility] [facility] OUTPATIENT [id number] W/I BELTRÁNRODRIGO Brock 04/15 [place] [facility] [facility] OUTPATIENT [id number] RADHA CARRINGTON 06/15 Released w/o Limitations [facility] [facility] [facility] TELE CONSULT [id number] Pt needs you to change his profile paperwo rk and needs it to be done [place]. RODRIGO BELTRÁN 07/08 [place] OUTPATIENT [id number] 0735 walk in RODRIGO BELTRÁN Brock 07/13 [place] [facility] [facility] [place] [id number] DENTON BRYANT 07/15 [place] [place] [facility] [facility] OUTPATIENT [id number] Rarm injured JORGE NICKERSON MORENA 07/21 Released w/o Limitations [facility] [facility] [facility] OUTPATIENT [id number] fu xray ERICH NICKERSONE MORENA 07/23 Released w/o Limitations [facility] [facility] [facility] [place] [employer] [facility] OUTPATIENT [id number] mib physica l part 2 RIGO, ROMARIUS BASIA 07/27 Released w/o Limitations [facility] [place] [employer] [facility]) OUTPATIENT [id number] WALK-IN RODRIGO BELTRÁN 08/27 Released w/o Limitations [facility] OUTPATIENT [id number] WALK-IN PER RODRIGO MELENDEZ 08/28 Released w/o Limitations [facility] [facility] [facility] OUTPATIENT [id number] walk-in per RODRIGO Melendez 08/30 Released w/o Limitations [facility] [facility] [id number] 2 Notes Entered by: JUANITA STRICKLAND 05 Mar 2020 1346 ------- ------- ------- ------- -- CHEO AARON 03/05 [place] Limitations [place] [facility] [id number] Notes Entered by: JUANITA STRICKLAND 11 Mar 2020 1359 ------- ------- ------- ------- -- RTD DUDLEYCHEO WAQAS 03/11 [place]ased w/o [place] [facility] Outpatient Encounter [id number] 1 10/25 [facility] OFF/OP EST JANUARY X REQ PHY/QHP [id number] Diagnos is: ICD-10- CM R09.89 Oth symptom s and signs involvi ng the circ and resp systems JONI LOZANO 10/25 [facility] Outpatient Encounter [id number] CRISTAL AGGARWAL 10/25 [facility] Outpatient Encounter [id number] 10/26 [facility] Outpatient Encounter [id number] 11/02 [facility] OFFICE O/P EST SF 10 MIN [id number] Diagnos is: ICD-10- CM F43.12 Post-tr aumatic stress disorde r, chronic JOSY HARDING 11/03 [facility] PSYTX W PT 60 MINUTES [id number] [id number] Diagnos is: ICD-10- CM F43.12 Post-tr aumatic stress disorde r, chronic TERRELL CUELLAR 11/03 [facility] OFFICE O/P EST SF 10 MIN 03630-7.65 [id number] Diagnos is: ICD-10- CM F32.A Depress ion, unspeci JOSY Zavala 11/03 [facility] Outpatient Encounter [id number] 11/10 [facility] Outpatient Encounter [id number] 11/10 [facility] Outpatient Encounter [id number] 11/18 [facility] Outpatient Encounter [id number] 11/29 [facility] Outpatient Encounter [id number] [id number] 12/01 [facility] OFFICE O/P EST LOW 20 MIN 58661-9.65 [id number] Diagnos is: ICD-10- CM M25.511 Pain in right shoulde r Torrie OLVERA 12/20 [facility] Outpatient Encounter [id number] [id number] 12/20 [facility] Outpatient Encounter [id number] [id number] 12/30 [facility] Outpatient Encounter [id number] 01/02 [facility] Outpatient Encounter [id number] [id number] 01/03 [facility] Outpatient Encounter [id number] 01/05 [facility] Outpatient Encounter [id number] 01/16 [facility] Outpatient Encounter [id number] [id number] 01/24 [facility] Outpatient Encounter [id number] [id number] 01/30 [facility] Outpatient Encounter [id number] [id number] 01/31 [facility] OFFICE O/P EST LOW 20 MIN 51860-5.65 [id number] Diagnos is: ICD-10- CM F43.12 Post-tr aumatic stress disorde r, chronic JOSY HARDING 01/31 [facility] Outpatient Encounter [id number] 02/03 [facility] Outpatient Encounter [id number] [id number] 02/06 [facility] FEE [id number] [id number] Diagnos is: ICD-10- CM Z02.89 Encount er for other adminis trative examina tions BRANDON MONTILLA 02/08 [facility] Outpatient Encounter [id number] Diagnos is: ICD-10- CM Z02.89 Encount er for other adminis trative examina tions BRANDON MONTILLA 02/08 [facility] Outpatient Encounter [id number] [id number] 03/03 [facility] Outpatient Encounter [id number] [id number] 03/13 [facility] OFF/OP EST MAY X REQ PHY/QHP [id number] [id number] Diagnos is: ICD-10- CM M25.552 Pain in left hip BLANCA RIVAS R 03/22 [facility] OFFICE O/P EST MOD 30 MIN [id number] Diagnos is: ICD-10- CM M54.16 Radicul opathy, lumbar region Daxa SALAMANCA KAYLEE 03/22 [facility] Outpatient Encounter [id number] 03/31 [facility] OFFICE O/P EST SF 10 MIN [id number] Diagnos is: ICD-10- CM F33.1 Major depress misa disorde r, recurre nt, modermilan e JOSY HARDING R 04/03 [facility] Outpatient Encounter [id number] 04/06 [facility] Outpatient Encounter [id number] 04/13 [facility] Outpatient Encounter [id number] 04/24 [facility] OFFICE O/P EST MOD 30 MIN [id number] Diagnos is: ICD-10- CM M54.16 Radicul opathy, lumbar region JADYN,T KAYLEE 05/02 [facility] THERAPEUTI C EXERCISES [id number] [id number] Diagnos is: ICD-10- CM M54.16 Radicul opathy, lumbar region REBECAMAGGI LOPEZ HOLAS A 05/03 [facility] Outpatient Encounter [id number] 05/09 [facility] Outpatient Encounter [id number] 05/09 [facility] Outpatient Encounter [id number] [id number] 05/10 [facility] Outpatient Encounter [id number] [id number] 05/25 [facility] Outpatient Encounter [id number] [id number] 05/25 [facility] Outpatient Encounter [id number] [id number] Diagnos is: ICD-10- CM M54.16 Radicul opathy, lumbar region REBECA,MAGGI KALE A 06/05 [facility] OFFICE O/P EST LOW 20 MIN [id number] Diagnos is: ICD-10- CM F43.12 Post-tr aumatic stress disorde r, chronic JOSY HARDING R 06/05 [facility]ALUATION [id number] [id number] Diagnos is: ICD-10- CM F43.12 Post-tr aumatic stress disorde r, chronic YASMINE DUMAS P 06/05 [facility] Outpatient Encounter [id number] 06/06 [facility] Outpatient Encounter [id number] [id number] 06/06 [facility] Outpatient Encounter [id number] CRISTAL AGGARWAL L 06/21 [facility] Outpatient Encounter [id number] [id number] 06/30 [facility] Outpatient Encounter [id number] [id number] 07/26 [facility] N [facility] Outpatient Encounter [id number] [id number] 08/08 [facility] MINUTES [id number] [id number] Diagnos is: ICD-10- CM F43.12 Post-tr aumatic stress disorde r, chronic YASMINE DUMAS P 08/29 [facility] FAC[facility] FEE [id number] [id number] Diagnos is: ICD-10- CM F43.12 Post-tr aumatic stress disorde r, chronic BLANCA RIVAS R 09/12 [facility] OFFICE O/P EST LOW 20 MIN [id number] [id number] Diagnos is: ICD-10- CM F43.12 Post-tr aumatic stress disorde r, chronic Khris ESTRADA 09/12 [facility] Outpatient Encounter [id number] [id number] 09/26 [facility] Outpatient Encounter [id number] [id number] 10/03 [facility] Outpatient Encounter [id number] [id number] 10/05 [facility] N [facility] Outpatient Encounter [id number] [id number] 10/10 [facility] Outpatient Encounter [id number] [id number] 10/11 [facility] FAC[facility] FEE [id number] [id number] Diagnos is: ICD-10- CM H93.13 Tinnitu s, bilater al NOAM ANDRADE NEISHA A 10/12 [facility] XM&SLCTN BINAURL [id number] [id number] Diagnos is: ICD-10- CM H93.13 Tinnitu s, bilater al NOAM ANDRADE NEISHA A 10/12 [facility] En[facility] [id number] 10/19 [facility] Outpatient Encounter [id number] [id number] 10/20 [facility] OFFICE O/P EST MOD 30 MIN [id number] [id number] Diagnos is: ICD-10- CM F43.12 Post-tr aumatic stress disorde r, chronic JOSY HARDING R 10/23 [facility]AC[facility] FEE [id number] [id number] Diagnos is: ICD-10- CM Z46.1 Encount er for fitting and adjustm ent of hearing aid NOAM ANDRADE NEISHA A 11/14 [place] [facility] CONFORMITY EVALUATION [id number] [id number] Diagnos is: ICD-10- CM Z46.1 Encount er for fitting and adjustm ent of hearing aid NOAM ANDRADE 11/14 [facility] [place] PSYTX W PT 45 MINUTES [id number] [id number] Diagnos is: ICD-10- CM F43.12 Post-tr aumatic stress disorde r, chronic YASMINE DUMAS P 11/28 [facility] Outpatient Encounter [id number] [id number] 12/01 [facility] OFFICE O/P EST MOD 30 MIN [id number] [id number] Diagnos is: ICD-10- CM F43.12 Post-tr aumatic stress disorde r, chronic JOSY HARDING R 12/04 [facility] Outpatient Encounter [id number] [id number] 12/07 [facility] Outpatient Encounter [id number] [id number] 12/11 [facility] Outpatient Encounter [id number] [id number] 12/12 [facility] Outpatient Encounter [id number] [id number] 01/01 [facility] Outpatient Encounter [id number] [id number] 01/15 [facility] Out[facility] Encounter [id number] [id number] 01/26 [facility] Outpatient Encounter [id number] [id number] DAR GARCIA M 02/09 [facility] Outpatient Encounter [id number] [id number] 02/12 [facility] N [facility] OFFICE O/P EST MOD 30 MIN [id number] [id number] Diagnos is: ICD-10- CM F43.12 Post-tr aumatic stress disorde r, chronic JOSY HARDING R 02/12 [facility] Outpatient Encounter [id number] 03/22 [facility] OFFICE O/P EST MOD 30 MIN [id number] [id number] Diagnos is: ICD-10- CM M25.511 Pain in right shoulde r RUSS GOMEZ G 03/22 [facility] Outpatient Encounter [id number] [id number] MILAN PEPPER A 03/23 [facility] Outpatient Encounter [id number] [id number] 03/29 [facility] Outpatient Encounter [id number] [id number] 04/06 [facility] Procedures Combined list of: 1) Procedures from Department of Veterans Affairs facilities going back up to thelast 18 months, not all VA non-surgical procedures are included; 2) All procedures from the Department of Defense facilities. Procedure Procedure Type Code Date Perfomer Comments Souralexander e Psychiat Therapy Indiv Appr 20-30 Min W/ Med Eval Managemt Psychiat Therapy Indiv Appr 20-30 Min W/ Med Eval Managemt [id number] 006 RODRIGO BELTRÁN [facility] Psychiat Therapy Indiv Appr 45-50 Min W/ Med Eval Managemt Psychiat Therapy Indiv Appr 45-50 Min W/ Med Eval Managemt 15906 006 RODRIGO BELTRÁN [facility] Psychiat Therapy Indiv Appr 20-30 Min W/ Med Eval Managemt Psychiat Therapy Indiv Appr 20-30 Min W/ Med Eval Managemt 63822 006 RODRIGO BELTRÁN [facility] Psychiatric Therapy Group (Interview) Psychiatric Therapy Group (Interview) [id number] GLENYS PERRIN [facility] Screening Test Of Visual Acuity, Quantitative, Bilateral Screening Test Of Visual Acuity, Quantitative, Bilateral 90836 006 DENTON ORTEZ [facility] Psychiat Therapy Indiv Appr 45-50 Min W/ Med Eval Managemt Psychiat Therapy Indiv Appr 45-50 Min W/ Med Eval Managemt 80396 006 RODRIGO BELTRÁN [facility] Psychiat Therapy Indiv Appr 20-30 Min W/ Med Eval Managemt Psychiat Therapy Indiv Appr 20-30 Min W/ Med Eval Managemt 14602 006 RODRIGO BELTRÁN [facility] Clinical Social Work Counseling Group Clinical Social Work Counseling Group [id number] 006 GLENYS PERRIN Discussed various treatments available for PTSD, current sx and appropriate coping skills. [facility] Clinical Social Work Counseling Group Clinical Social Work Counseling Group [id number] 006 GLENYS PERRIN Grp members did the Coping Skills Inventory, discussed current coping practice, discussed their vision of recovery and we examined unhelpful fantasies regarding recovery. [facility] Clinical Social Work Counseling Group Clinical Social Work Counseling Group [id number] GLENYS PERRIN [facility] Health And Behav A e mt Each 15 Min Initial A e ment Health And Behav Assessmt Each 15 Min Initial Assessment [id number] 006 COMPA PUENTE [facility] Psychiatric Therapy Individual Approximately 45-50 Minutes Psychiatric Therapy Individual Approximately 45-50 Minutes [id number] 006 RODRIGO BELTRÁN [facility] Psychiat Therapy Indiv Appr 20-30 Min W/ Med Eval Managemt Psychiat Therapy Indiv Appr 20-30 Min W/ Med Eval Managemt 74918 006 RODRIGO BELTRÁN [facility] Psychiatric Therapy Individual Approximately 45-50 Minutes Psychiatric Therapy Individual Approximately 45-50 Minutes [id number] 006 OMARI CASTELLON [facility] Psychiatric Therapy Individual Approximately 45-50 Minutes Psychiatric Therapy Individual Approximately 45-50 Minutes 12133 006 OMARI CASTELLON [facility] Clinical Social Work Counseling Group Clinical Social Work Counseling Group [id number] 006 GLENYS PERRIN Reviewed assigned relaxation practice, discussed attitudes that interfere with practice. Began discussion of sleep hygiene. [facility] Clinical Social Work Counseling Group Clinical Social Work Counseling Group [id number] 006 GLENYS PERRIN Reviewed use of coping skills taught so far. Confronted any lack of practice. Encouraged continued use of coping skills. Examined negative thoughts/belie fs related to upset and challenged grp members to consider alternative rational responses to them. [facility] INFUSION, NORMAL SALINE SOLUTION , 1000 CC 005 [facility] INFLUENZA VIRUS VACCINE, TRIVALENT, LIVE (LAIV3), FOR INTRANASAL USE 005 [facility] EDUCATIONAL SUPPLIES, SUCH BOOKS, TAPES, AND PAMPHLETS, FOR THE PATIENT'S EDUCATION AT COST TO PHYSICIAN OR OTHER QUALIFIED HEALTH COMPUTER PROJECT MANAGER 002 DoD MEASLES AND RUBELLA VIRUS VACCINE, LIVE, FOR SUBCUTANEOUS USE 002 [facility] INDIVIDUAL PSYCHOTHERAPY, INSIGHT ORIENTED, BEHAVIOR MODIFYING AND/OR SUPPORTIVE, IN AN OFFICE OR OUTPATIENT FACILITY, APPROXIMATELY 20 TO 30 MINUTES [id number] W THE PATIENT; W MED EVAL & MGT SER 006 [facility] INDIVIDUAL PSYCHOTHERAPY, INSIGHT ORIENTED, BEHAVIOR MODIFYING AND/OR SUPPORTIVE, IN AN OFFICE OR OUTPATIENT FACILITY, APPROXIMATELY 45 TO 50 MINUTES [id number] W THE PATIENT; W MED EVAL & MGT SER 006 [facility] INDIVIDUAL PSYCHOTHERAPY, INSIGHT ORIENTED, BEHAVIOR MODIFYING AND/OR SUPPORTIVE, IN AN OFFICE OR OUTPATIENT FACILITY, APPROXIMATELY 20 TO 30 MINUTES [id number] W THE PATIENT; W MED EVAL & MGT SER 006 DoD SCREENING TEST OF VISUAL ACUITY, QUANTITATIVE, BILATERAL DoD PURE TONE AUDIOMETRY (THRESHOLD); AIR ONLY [facility] GROUP PSYCHOTHERAPY (OTHER THAN OF A MULTIPLE-FAMILY GROUP) DoD INDIVIDUAL PSYCHOTHERAPY, INSIGHT ORIENTED, BEHAVIOR MODIFYING AND/OR SUPPORTIVE, IN AN OFFICE OR OUTPATIENT FACILITY, APPROXIMATELY 45 TO 50 MINUTES [id number] W THE PATIENT; W MED EVAL & MGT SER DoD INTERACTIVE GROUP PSYCHOTHERAPY DoD INTERACTIVE GROUP PSYCHOTHERAPY DoD INTERACTIVE GROUP PSYCHOTHERAPY DoD HEALTH&BEHAV ASSESSMENT (EG, HEALTH-FOC CLINICAL INTERVIEW, BEHAVIORAL OBSERVATIONS, PSYCHOPHYSICOLOGICAL MONITOR, HEALTH-ORIENT QUESTIONNAIRES), EA 15 MIN [id number] W THE PATIENT; INIT ASSESSMENT DoD INDIVIDUAL PSYCHOTHERAPY, INSIGHT ORIENTED, BEHAVIOR MODIFYING AND/OR SUPPORTIVE, IN AN OFFICE OR OUTPATIENT FACILITY, APPROXIMATELY 45 TO 50 MINUTES [id number] WITH THE PATIENT DoD INDIVIDUAL PSYCHOTHERAPY, INSIGHT ORIENTED, BEHAVIOR MODIFYING AND/OR SUPPORTIVE, IN AN OFFICE OR OUTPATIENT FACILITY, APPROXIMATELY 20 TO 30 MINUTES [id number] W THE PATIENT; W MED EVAL & MGT SER DoD IMMUNIZATION ADMINISTRATION (INCLUDES PERCUTANEOUS, INTRADERMAL, SUBCUTANEOUS, OR INTRAMUSCULAR INJECTIONS); EACH ADDITIONAL VACCINE (SINGLE OR COMBINATION VACCINE/TOXOID) DoD INDIVIDUAL PSYCHOTHERAPY, INSIGHT ORIENTED, BEHAVIOR MODIFYING AND/OR SUPPORTIVE, IN AN OFFICE OR OUTPATIENT FACILITY, APPROXIMATELY 45 TO 50 MINUTES LMSF-ES-[id number] WITH THE PATIENT DoD PURE TONE AUDIOMETRY (THRESHOLD); AIR ONLY [facility] HEALTH&BEHAV ASSESSMENT (EG, HEALTH-FOC CLINICAL INTERVIEW, BEHAVIORAL OBSERVATIONS, PSYCHOPHYSICOLOGICAL MONITOR, HEALTH-ORIENT QUESTIONNAIRES), EA 15 MIN [id number]-WA-[id number] W THE PATIENT; INIT ASSESSMENT DoD INDIVIDUAL PSYCHOTHERAPY, INSIGHT ORIENTED, BEHAVIOR MODIFYING AND/OR SUPPORTIVE, IN AN OFFICE OR OUTPATIENT FACILITY, APPROXIMATELY 45 TO 50 MINUTES [id number]-PZ-[id number] WITH THE PATIENT DoD INTERACTIVE GROUP PSYCHOTHERAPY DoD INTERACTIVE GROUP PSYCHOTHERAPY DoD INDIVIDUAL PSYCHOTHERAPY, INSIGHT ORIENTED, BEHAVIOR MODIFYING AND/OR SUPPORTIVE, IN AN OFFICE OR OUTPATIENT FACILITY, APPROXIMATELY 20 TO 30 MINUTES LUZG-[id number] W THE PATIENT; W MED EVAL & MGT SER DoD Social History Combined list of available smoking, tobacco, and other social history from Department of Defense and Veterans Affairs facilities. Social History Type Response Date Comment [facility] e Tobacco smoking status ILIS [place]-TOBACCO USE FORMER OTHER TYPE 09/12/2024 [facility] History of tobacco use VA-TOBACCO USE EV JACOBY DAY CIGARETTES 09/12/2024 [facility] History of tobacco use VA-TOBACCO USER E VERY DAY 09/13/2023 [facility] History of tobacco use CURRENT SMOKER 08/12/2022 [facility] History of tobacco use VA-TOBACCO USE MED NO 06/22/2019 [facility] This section is an empty social history section. DoD Plan of Care List of future care activities from Department of Veterans Affairs facilities. Additional future care activities may be listed in the Assessment and Plan section. Date/Time Care Activity Care Activity Detail Facili ty 05/04/2025 [facility]BUL[facility]
--- OUTSIDE RECORDS SUMMARY | 2025-04-12 12:04 | XMS_ITS | Patient Health Record ---
Author Organization [facility] Address [address] [place] [address] Care Team Providers Care District [address] Reporter Name Role Phone Lisette Lucio MD Primary Care Provider Damir Olsen Jason Unavailable [phone] JrJhonny Unavailable [phone] Wendy Rushing Unavailable [phone] Allergies Allergen (clinical drug ingredient) Drug/Non Drug Allergy documented on EMR Reaction Allergy Type Onset Date Status Penicillin Unknown Drug Allergy Active Results Component Value Reference Range Flag Notes Chest PA/Lat-49296 (Not yet reviewed by provider) Interpretation: Performing Lab: Notes/Report: [id number]=iSite Prothrombin Time 80044 (Not yet reviewed by provider) Interpretation: Performing Lab: Notes/Report: Diagnosis Description: Other intervertebral disc displacement, lumbar region Diagnosis Description: Other intervertebral disc degeneration, lumbar region Diagnosis Description: Radiculopathy, lumbar region Diagnosis Description: Hemorrhagic condition, unspecified Diagnosis Description: Encounter for other preprocedural examination ProTime 10.6 9.1-11.9 SEC Normal Range : 9.1-11.9 INR 1.00 .90-1.20 Therapeutic Range: 2.0-3.0 Therapaeutic Range for heart valve replacement: 2.5-3.50 Basic Metabolic Panel (BMP) 81287 (Not yet reviewed by provider) Interpretation: Performing Lab: Notes/Report: Diagnosis Description: Other intervertebral disc displacement, lumbar region Diagnosis Description: Other intervertebral disc degeneration, lumbar region Diagnosis Description: Radiculopathy, lumbar region Diagnosis Description: Hemorrhagic condition, unspecified Diagnosis Description: Encounter for other preprocedural examination Sodium 144 136-145 MMOL/L Potassium 3.9 3.5-5.1 MMOL/L Chloride 106 98-107 MMOL/L CO2 29.3 20.0-31.0 MMOL/L Glucose Serum 87 71-110 MG/DL Testing bella renee at [facility], [address] [place] [address] Dr. Nelia [place], [place] [address]. CLIA ID#: [id number] BUN 8 7-21 MG/DL Creat .74 .57-1.17 MG/DL L-begvgm-m-benzoquino ne imine (NAPQI) is a metabolite of acetaminophen, NAPQI concentrations of apparoximately 10 mg/L correlation to toxic levels of acetaminophen demonstrates a greater than or equil to 10% change in results. NAPQI concentrations greater than this may lead to falsely depressed results for patient samples. Use of this assay is not recommended for patients undergoing treatment with phenindione, due to the potential for falsely depressed results. GFR 117.1 NA Calculation pe rformed from GFR calculator provided by the [employer]. Glomerular Filtration rate(GRF) is the best overall index of kidney function. Normal GFR varies according to age,sex, body size, and declines with age. The [employer] recommends using the CKD-EPI Creatinine Equation(202) to estimate GFR. Anion Gap 13 5-15 BUN/Creat Ratio 10.8 12.0-20.0 % LOW Calcium 9.3 8.7-10.4 MG/DL Osmo Serum,Calculated 296 280-300 MOSM/KG CBC w\ Auto Diff 36133 (Not yet reviewed by provider) Interpretation: Performing Lab: Notes/Report: Diagnosis Description: Other intervertebral disc displacement, lumbar region Diagnosis Description: Other intervertebral disc degeneration, lumbar region Diagnosis Description: Radiculopathy, lumbar region Diagnosis Description: Hemorrhagic condition, unspecified Diagnosis Description: Encounter for other preprocedural examination WBC 6.8 4.5-11.0 X10'3 RBC 4.86 4.50-5.90 X10'6 Hgb 15.4 13.5-17.5 G/DL Hct 46.6 41.0-53.0 % MCV 95.9 80.0-100.0 FL MCH 31.7 27.0-31.0 PG HI MCHC 33.0 31.0-37.0 G/DL Platelet 274 150-400 X10'3 RDW-SD 40.3 35.0-49.0 FL RDW-CV 11.5 12.2-15.6 % LOW MPV 9.6 9.2-12.0 FL Neutro Auto% 42.5 40.0-70.0 % Lymph Auto% 39.0 22.0-44.0 % [place] Auto% 5.9 3.0-7.0 % Eos Auto% 11.6 2.0-4.0 % HI Baso Auto% 0.9 0.0-1.0 % Imm Gran% .1 .0-.4 % Neutro Abs 2.87 .80-7.70 Absolute Neutrophil Count 2870 NA Lymph Abs 2.63 .10-4.10 [place] Abs .40 .20-1.00 Eos Abs .78 .00-.40 HI Baso Abs .06 .00-.20 Imm Gran Abs .01 .00-.10 NRBC# .00 .00-.20 NRBC% .00 .00-.20 /100 intact WBC's Partial Thromboplastin Time 77098 (Not yet reviewed by provider) Interpretation: Performing Lab: Notes/Report: Diagnosis Description: Other intervertebral disc displacement, lumbar region Diagnosis Description: Other intervertebral disc degeneration, lumbar region Diagnosis Description: Radiculopathy, lumbar region Diagnosis Description: Hemorrhagic condition, unspecified Diagnosis Description: Encounter for other preprocedural examination PTT 25.3 22.6-31.8 SEC Therapeutic Range: 60-100. Critical Value Starting at > 100. Chest PA/Lat-97038 (Not yet reviewed by provider) Interpretation: Performing Lab: Notes/Report: See Below For Report Chest PA/Lat Diagnosis Description: Other intervertebral disc displacement, lumbar region Read See Below For Report zzzFluoroscopy (Not yet revi ewed by provider) Interpretation: Performing Lab: Notes/Report: Fluoroscopy only. No dictation for this exam and accession number. FINAL REPORT Read Fluoroscopy only. No dictation for this exam and accession number. Lumbosacral Spine AP/Lat - 65026 (Not yet reviewed by provider) Interpretation: Performing Lab: Notes/Report: [id number]=iSite Lumbosacral Spine AP/Lat - 86046 (Not yet reviewed by provider) Interpretation: Performing Lab: Notes/Report: See Below For Report Lumbosacral Spine AP/Lat Schedule Confirmation (Not y et reviewed by provider) Interpretation: Performing Lab: Notes/Report: Schedule Confirmation (Not y et reviewed by provider) Interpretation: Performing Lab: Notes/Report: zzzMRI Outside CD (Not yet r eviewed by provider) Interpretation: Performing Lab: Notes/Report: [id number]=iSite Reason For Referral Reason lumbar pain Diagnosis 1 Lumbar pain (M54.50) Referring Provider First Name Lisette Referring Provider Last Name [facility] Referring Provider Speciality Family Med icinv Referred Organization [facility] [place] Referred Provider Jhonny Norris Referred Address [address] [facility] ,[place],[address],[place] Referral Priority Routine Reason LLE EMG[facility]NCS at [facility] Diagnosis 1 Lumbar radiculopathy (M54.16) Diagnosis 2 Bulge of lumbar disc without myelopathy (M51.26) Referral Organization [facility] [place] Referring Provider First Name Wendy Referring Provider Last Name Сергей Referring Provider Speciality Neurosurge ry Referral Priority Routine Medications Medication SIG (Take, Route, Frequency, Duration) Notes Start Date End Date Status buPROPion HCl ER (XL) 150 MG Tablet Extended Release 24 Hour 1 tablet in the morning Orally Once a day Active Meloxicam 15 MG Tablet 1 tablet Orally Once a day Active traMADol HCl 50 MG Tablet 1 tablet as ne eded Orally Once a day Active Social History Tobacco Use: Social History Observation Description Date Details (start date - stop date) Current Smoker NA - NA Social History Drug/Alcohol: Social Info Question Answer Notes AUDIT-C (Standard) Did you have a drink containing alcohol in the past year? Yes How often did you have six or more drinks on one occasion in the past year? 2 to 3 times per week (3 points) How many drinks did you have on a typical day when you were drinking in the past year? Declined to specify (0 point) How often did you have a drink containing alcohol in the past year? Declined to specify (0 point) Points 3 Interpretation Negative Tobacco Use: Social Info Question Answer Notes Tobacco Control (Standard) Tobacco use: Current smoker How often do you smoke cigarettes? Every day Additional Details Category Social Info Options Details Drugs/Alcohol: Do you smoke marijuana? Ad mits 1-2 weekly Do you drink alcohol? Yes Problems Problem Type SNOMED Code ICD Code Onset Dates Problem Status W/U Status Risk Notes Problem Lumbar radiculopathy (170647681) Lumbar radiculopathy (M54.16) Active confirmed Problem Annular tear of lumbar disc (569142540) Annular tear of lumbar disc (M51.36) Active confirmed Problem Prolapsed lumbar intervertebral disc (195724649) Lumbar disc herniation (M51.26) Active confirmed Problem Displacement of lumbar intervertebral disc without myelopathy (20020703) Bulge of lumbar disc without myelopathy (M51.26) Active confirmed Problem Degeneration of lumbar intervertebral disc (17490317) Degenerative disc disease, lumbar (M51.36) Active confirmed Problem Degeneration of lumbar intervertebral disc (43777060) Disc degeneration, lumbar (M51.36) Active confirmed Problem Displacement of lumbar intervertebral disc without myelopathy (20020703) Herniated nucleus pulposus, lumbar (M51.26) Active confirmed Vital Signs Heart Rate 106 /min 10/03/2024 Temperature 98.0 degrees Fahrenheit 10/03/2024 Respiratory Rate 18 /min 10/03/2024 Height-cm 187.96 cm 10/03/2024 Oximetry 92 % 10/03/2024 Blood pressure diastolic 66 mm Hg 10/03/2024 Weight-kg 85.28 kg 10/03/2024 Height 74 in 10/03/2024 Blood pressure systolic 122 mm Hg 10/03/2024 Weight 188 lbs 10/03/2024 BMI 24.14 kg/m2 10/03/2024 Encounters Encounter Location Date Provider Diagnosis [facility] Neurosurgery [facility] Spine [facility] [address] 06/01/2024 Jhonny Norris Herniated nucleus pulposus, lumbar M51.26 ; Disc degeneration, lumbar M51.36 ; Lumbar radiculopathy M54.16 ; Bleeding disorder D69.9 and Encounter for other preprocedural examination Z01.818 [facility] Neurosurgery [facility] Spine [facility] [place] [address] 06/15/2024 Jhonny Norris [facility] [place] [address] [place] [address] 10/03/2024 Wendy Rushing Bulge of lumbar disc without myelopathy M51.26 and Lumbar radiculopathy M54.16 [facility] [place] [address] [place] [address] 05/25/2024 Jhonny Norris Herniated nucleus pulposus, lumbar M51.26 ; Disc degeneration, lumbar M51.36 and Lumbar radiculopathy M54.16 [facility] Sp[facility] [address] [place] [address] 07/03/2024 Jason Raúl Lumbar radiculopathy M54.16 and Lumbar disc herniation M51.26 [facility] [place] [address] [place] [address], [place] [address] 08/01/2024 Wendy Rushing Bulge of lumbar disc without myelopathy M51.26 and Annular tear of lumbar disc M51.36 Assessments Encounter Date Diagnosis (ICD Code) Assessment Notes Treatment Notes Treatment Clinical Notes Section Notes 06/01/2024 Herniated nucleus pulposus, lumbar (ICD-10 - M51.26) 07/03/2024 Lumbar radiculopathy (ICD-10 - M54.16) 07/03/2024 Lumbar disc herniation (ICD-10 - M51.26) 08/01/2024 Annular tear of lumbar disc (ICD-10 - M51.36) 08/01/2024 Bulge of lumbar disc without myelopathy (ICD-10 - M51.26) 10/03/2024 Lumbar radiculopathy (ICD-10 - M54.16) 10/03/2024 Bulge of lumbar disc without myelopathy (ICD-10 - M51.26) 05/25/2024 Disc degeneration, lumbar (ICD-10 - M51.36) 05/25/2024 Herniated nucleus pulposus, lumbar (ICD-10 - M51.26) 06/01/2024 Disc degeneration, lumbar (ICD-10 - M51.36) 05/25/2024 Lumbar radiculopathy (ICD-10 - M54.16) 06/01/2024 Lumbar radiculopathy (ICD-10 - M54.16) 06/01/2024 Bleeding disorder (ICD-10 - D69.9) 06/01/2024 Encounter for other preprocedural examination (ICD-10 - Z01.818) 05/25/2024 Other The patient's symptoms and clinical findings were reviewed. The patient is having low back pain and left lower extremity radicular pain. The lumbar imaging shows an L5-S1 disc herniation on the left side. The patient has exhausted conservative measures and continues to have symptoms that have improved only slightly. We discussed giving more time to improve on his own verses surgery to remove the herniation. Surgery would be a left L5-S1 MISDISC. The surgery procedure was described to the patient. The risks of surgery and the recovery expectations were discussed. Questions were asked and answered to the patient's satisfaction. He states his understanding and has opted to give himself a couple more weeks to see if he improves. If his pain does not improve he will call to proceed with surgery. ROS reviewed I Tejal Mccabe LPN am scribing for, and in the presence of Jhonny Norris MD. I, Jhonny Norris, personally performed the services described in this documentation, as scribed by Tejal Mccabe LPN in my presence, and it is both accurate and complete. ADDENDUM: The patient called and states his pain continues and has decided he would like to proceed with the left L4-S1 MISDISC surgery that was discussed on his visit. We will proceed with scheduling. 07/03/2024 Other Patient doing well along expected postoperative course. Spine restrictions, activity advancement, incision care, usual healing course reviewed with understanding verbalized. Patient states he has no needs at this time. Will plan to see him back in 4 to 6 weeks to assess his progress, sooner if needed. 08/01/2024 Other Patient requesting to return to work. We discussed restrictions . He will contact us if his pain worsens. 10/03/2024 Other Discussed with patient that we will obtain MRI of lumbar spine and NCS/EMG of the LLE and f/u after this has been done. Plan Of Treatment Pending Test Test Name Order Date Prothrombin Time 62692 06/01/2024 Prothrombin Time 77989 06/12/2024 Basic Metabolic Panel (BMP) 32819 2023 Basic Metabolic Panel (BMP) 95586 2023 CBC w\ Auto Diff 63480 06/01/2024 CBC w\ Auto Diff 27525 06/12/2024 Partial Thromboplastin Time 98033 2023 Partial Thromboplastin Time 62671 2023 Chest PA/Lat-15279 06/12/2024 Chest PA/Lat-81527 06/01/2024 Electrocardiogram 12 Lead Tracing-21041 06/01/2024 zzzFluoroscopy 06/19/2024 zzzMRI Outside CD 04/13/2024 Schedule Confirmation 10/17/2024 Schedule Confirmation 10/17/2024 IH Lumbosacral Spine AP/Lat - 99700 05/29 IH Lumbosacral Spine AP/Lat - 08785 05/29 Future Test Test Name Order Date MRI Lumbar Spine w/o Cont-46037 10/03/19 25 Insurance Providers Payer Name Payer Address Payer Phone Subscriber Number Group Number Insured Name Patient Relationship to Insured Coverage Start Date Coverage End Date [employer] [address] [place] [phone] [id number] Mega Gonzales Self - patient is the insured Medical (General) History Medical History History ICD Code Chicken Pox Venereal Disease Back Trouble bronchitis Surgical History Surgery Date(Month/Year) vasectomy 2017
[2025-04-12 12:26] VITALS: BP 122/77; PULSE 110; RESP 17; TEMP 36.7; O2SAT 98; BMI 21.8
[2025-04-12 12:32] LABS: Hematocrit 54.4 % (37-53); Hemoglobin 19.20 g/dL (11.27-16.99); Mean Corpuscular HGB Conc 35.3 g/dL (30-55); Mean Corpuscular Hemoglobin 32.1 pg (27-33); Mean Corpuscular Volume 90.8 fl (82-101); Nucleated Red Blood Cells % 0 %; Platelet Count 345 10^3/cmm (157-399); Red Blood Count 5.99 10^6/uL (3.85-5.65); White Blood Count 11.65 10^3/uL (3.29-11.43)
[2025-04-12 12:50] LABS: Alanine Aminotransferase 24 U/L (0-41); Albumin Level 5.2 g/dL (3.5-5.2); Alkaline Phosphatase 93 U/L (40-130); Anion Gap 23.4 (5-19); Aspartate Amino Transferase 29 U/L (0-40); Blood Urea Nitrogen 13 mg/dL (6-20); Calcium 11.2 mg/dL (8.5-10.5); Carbon Dioxide 23 mmol/L (22-29); Chloride 97 mmol/L (98-107); Creatinine Clr Calc Pharmacy 78.7329; Globulin 3.6 g/dL (1.3-4.6); Glucose 95 mg/dL (65-115); Lipase 33 U/L (13-60); Osmolality Calculated 288 mOsm/kg (285-295); Potassium 4.4 mmol/L (3.5-5.1); Sodium 139 mmol/L (136-145); Total Protein 8.8 g/dL (6.6-8.7)
[2025-04-12 13:31] LABS: Glucose Urine UA Negative (Normal); Nitrate Urine Positive (Negative); Specific Gravity, Urine 1.029 (1.005-1.030)
[2025-04-12 13:34] LABS: Add Urine Microscopic? YES
[2025-04-12 13:40] LABS: UA Slide Review UA Slide Review Perf
--- NOTE | 2025-04-12 13:40 | ED_ITS ---
HPI - Syncope 2 General: Chief Complaint: Syncope Stated Complaint: nausea / abd pain Time Seen by Provider: 04/12/25 13:11 History of Present Illness: 40-year-old male who presents to the [facility] room with complaints of lightheadedness and dizziness. 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 Denies any dysuria urgency or frequency no chest pain he has been very nauseous but not vomited. He states he has had little to no urine output today. Associated symptoms: Deny abdominal pain, chest pain or fever(s) Related Data Previous Rx's ?Medication ?Instructions ?Recorded promethazine 25 mg tablet 25 mg PO Q6H PRN nausea and 04/12/25 vomiting #20 tabs Allergies Allergy/AdvReac Type Severity Reaction Status Date / Time Penicillins Allergy rash Verified 04/04/25 09:40 Review of Systems 2 Const: Denies: fever(s) or chills Card: Denies: chest pain Resp: Denies: dyspnea GI: Denies: abdominal pain : Denies: dysuria, urinary frequency or urinary urgency Musc: Denies: neck pain or back pain Skin/Breast: Denies: rash PFSH ED 2 PFSH: Medical History IBS (irritable bowel syndrome) Von Willebrand disease Gilbert's disease Anxiety Depression PTSD (post-traumatic stress disorder) Surgical History H/O vasectomy Social History Smoking and tobacco/nicotine status: never used tobacco/nicotine Alcohol intake: current Alcohol intake frequency: 3 or more drinks per day Alcohol type: beer Physical Exam 2 Const: COMMON NORMALS: no acute distress GENERAL APPEARANCE: cooperative and comfortable ORIENTATION/CONSCIOUSNESS: Yes awake, Yes oriented to person, Yes oriented to place and Yes oriented to time HENMT: COMMON NORMALS: normocephalic, atraumatic and hearing grossly normal bilaterally HEAD & SCALP: normocephalic and atraumatic Resp: COMMON NORMALS: normal respiratory effort, No retractions, No use of accessory muscles and clear to auscultation bilaterally AUSCULTATION: clear to auscultation bilaterally Cardio: COMMON NORMALS: regular rhythm and No murmurs present (Cardio) R ATE: tachycardic RHYTHM: regular rhythm GI: COMMON NORMALS: Soft to palpation and No hepatosplenomegaly present A USCULTATION: Yes normoactive bowel sounds PALPATION: Yes Soft to palpation, No Tenderness to palpation present (GI), No Guarding due to palpation present (GI) and Yes No hepatosplenomegaly present Extremity: COMMON NORMALS: normal to inspection, capillary refill normal, no clubbing, cyanosis or edema, no calf tenderness and no pedal edema Neuro: SENSORIUM/ORIENTATION: Yes oriented to person, Yes oriented to place and Yes oriented to time Skin: COMMON NORMALS: no rashes or lesions noted GENERAL SKIN EXAM: no rashes or lesions noted Course 2 Vital Signs: Vital signs: Vital Signs Temperature 98.0 F 04/12/25 12:26 Pulse Rate 110 H 04/12/25 12:26 Respiratory Rate 17 04/12/25 12:26 Blood Pressure 122/77 04/12/25 12:26 Pulse Oximetry 98 04/12/25 12:26 Oxygen Delivery Me thod Room Air 04/12/25 12:26 MDM - Syncope Medical Decision Making Patient presented emergency room after episode of heat exhaustion with nausea vomiting tachycardia after prolonged exposure he is feeling improved after IV fluids. Reviewed findings with the patient. Labs reviewed as found in chart will discharge home advised him to avoid heat exposure for the next several days give promethazine to use as needed increase fluid intake return for further problems. Medical Records I reviewed the patient's medical records. Lab Data I reviewed the patient's lab results. 04/12/25 12:26 04/12/25 12:26 Laboratory Results WBC 11.65 10^3/uL (3.29-11.43) H 04/12/25 12:26 RBC 5.99 10^6/uL (3.85-5.65) H 04/12/25 12:26 Hgb 19.20 g/dL (11.27-16.99) H 04/12/25 12:26 Hct 54.4 % (37-53) H 04/12/25 12: MCV 90.8 fl (82-101) 04/12/25 12:26 MCH 32.1 pg (27-33) 04/12/25 12: MCHC 35.3 g/dL (30-55) 04/12/25 12: RDW 11.1 % (12.1-15.1) L 04/12/25 12: Plt Count 345 10^3/cmm (157-399) 04/12/25 12: MPV 9.2 fL (7.4-10.4) 04/12/25 12: Neut % (Auto) 83.5 % 04/12/25 12: Lymph % (Auto) 10.3 % 04/12/25 12: [place] % (Auto) 5.4 % 04/12/25 12: Eos % (Auto) 0.0 % 04/12/25 12: Baso % (Auto) 0.2 % 04/12/25 12: Neut # (Auto) 9.73 10^3/uL (1.8-7.7) H 04/12/25 12: Lymph # (Auto) 1.2 10^3/uL (0.8-4.8) 04/12/25 12: [place] # (Auto) 0.6 10^3/uL (0.2-0.9) 04/12/25 12: Eos # (Auto) 0.0 10^3/uL (0.0-0.8) 04/12/25 12: Baso # (Auto) 0.0 10^3/uL (0.0-0.1) 04/12/25 12: Nucleated RBC % (auto) 0 % 04/12/25 12: Nucleated RBCs # 0.0 /100WBC 04/12/25 12: Sodium 139 mmol/L (136-145) 04/12/25 12: Potassium 4.4 mmol/L (3.5-5.1) 04/12/25 12: Chloride 97 mmol/L (98-107) L 04/12/25 12: Carbon Dioxide 23 mmol/L (22-29) 04/12/25 12: Anion Gap 23.4 (5-19) H 04/12/25 12: BUN 13 mg/dL (6-20) 04/12/25 12: Creatinine 1.4 mg/dL (0.7-1.2) H 04/12/25 12:26 GFR Calculation 55.8 mL/min (90-130) L 04/12/25 12: Glucose 95 mg/dL (65-115) 04/12/25 12: Calculated Osmolality 288 mOsm/kg (285-295) 04/12/25 12:26 Calcium 11.2 mg/dL (8.5-10.5) H 04/12/25 12: Total Bilirubin 2.8 mg/dL (0.15-1.2) H 04/12/25 12:26 AST 29 U/L (0-40) 04/12/25 12: ALT 24 U/L (0-41) 04/12/25 12: Alkaline Phosphatase 93 U/L (40-130) 04/12/25 12: Total Protein 8.8 g/dL (6.6-8.7) H 04/12/25 12: Albumin 5.2 g/dL (3.5-5.2) 04/12/25 12: Globulin 3.6 g/dL (1.3-4.6) 04/12/25 12: Lipase 33 U/L (13-60) 04/12/25 12:26 Urine Color Dark yellow (Yellow) A 04/12/25 12:52 Urine Appearance Turbid (CLEAR) A 04/12/25 12:52 Urine pH 5.0 (5-7) 04/12/25 12:52 Ur Specific [place] 1.029 (1.005-1.030) 04/12/25 12:52 Urine Protein 2+ (Negative) A 04/12/25 12:52 Urine Glucose (UA) Negative (Normal) 04/12/25 12:52 Urine Ketones 2+ (Negative) H 04/12/25 12:52 Urine Blood Negative (Negative) 04/12/25 12:52 Urine Nitrate Positive (Negative) A 04/12/25 12:52 Urine Bilirubin 2+ (Negative) H 04/12/25 12:52 Urine Urobilinogen 1.0 mg/dL (Negative) 04/12/25 12:52 Ur Leukocyte Esterase Trace (Negative) A 04/12/25 12:52 Urine RBC 11-20 /hpf (0-2) H 04/12/25 12:52 Urine WBC 6-10 /hpf (0-5) 04/12/25 12:52 Ur Squamous Epith Cells 11-20 /hpf (0-5) H 04/12/25 12:52 Calcium Oxalate Crystal 5-10 /hpf H 04/12/25 12:52 Amorphous Sediment Trace /hpf 04/12/25 12:52 Urine Bacteria None seen /hpf (NONE) 04/12/25 12:52 Hyaline Casts 260.68 /lpf 04/12/25 12:52 Fine Granular Casts 0-4 /lpf H 04/12/25 12:52 All radiology interpretation(s) finalized by discharge Discharge Plan Discharge Patient Disposition: Home Clinical Impression: Heat exhaustion Condition: Stable Prescriptions: New promethazine 25 mg tablet 25 mg PO Q6H PRN (Reason: nausea and vomiting) Qty: 20 0RF Discharge Orders: Discharge ED (Routine); Ordered 04/12/25 Ordered By: Fermin Little Referrals: Lisette Emanuel MD [Primary Care Provider, Family Practice] Discharge Diet: Advance as tolerated Discharge Activity: Resume usual activity Patient Instructions: Heat Exhaustion (ED), Opioid Safety, Pain Management, Patient Portal & Casey Instructions Activity Restrictions/Additional Instructions: Thank you for choosing [facility] for your healthcare needs today. It is very important that you follow up as instructed or that you return to the Emergency Department should you have concerns or if your condition changes or worsens in any way. You are seen in the emergency room after prolonged heat exposure resulting in heat exhaustion. You are given several liters of fluid. Recommend you avoid heat exposure the next several days you are also given promethazine to use. Advance your diet as tolerated. Print Language: Serbian Coding Level of Care Code ED Maintenance Engineer for Marcial Huang
[2025-04-12 14:01] VITALS: PULSE 82; O2SAT 98
--- NOTE | 2025-04-12 14:26 | PC.PHAR ---
Last medications prescribed for pt were January and February in 2023. Pt states he takes no medications.
[2025-04-12 14:31] VITALS: PULSE 81; O2SAT 96
[2025-04-12 15:00] VITALS: PULSE 81; O2SAT 97
[2025-04-12 16:59] VITALS: PULSE 81; O2SAT 100
== END 2025-04-12 17:01 | disposition home or self-care (01) ==
PROVIDERS: Emergency Provider Family Medicine; PCP Family Medicine
DX: T67.5XXA Heat exhaustion, unspecified, initial encounter (principal); X30.XXXA Exposure to excessive natural heat, initial encounter
CPT/HCPCS: 36415; 80053; 81001; 83690; 85025; 87086; 96360; 96361; 99284; J7030

== ENCOUNTER → 2025-04-25 14:41 | Outpatient (BNVA) | payer OTHER, SELFPAY | PROVIDERS: PCP Family Medicine; Visit Provider Student in an Organized Health Care Education/Training Program | DX: M75.41 Impingement syndrome of right shoulder (principal) | CPT/HCPCS: 20610; 99213; J3301; J9999 ==